=== PATIENT | female | born 1960 | race Caucasian/White ===

== ENCOUNTER → 2016-06-29 | Outpatient (CLI) | payer BC ==
--- NOTE | 2016-06-29 09:07 | MM ---
Reason for exam: history of breast cancer, mastectomy. Last mammogram was performed 1 year and 1 month ago. History: Patient is postmenopausal, has history of breast cancer at age 54, and is nulliparous. Family history of breast cancer in maternal aunt. Malignant MG stereo VAD BX LT of the left breast, June 03, 2015. Implant in the right breast, 2016. Breast lift of the right breast, 2016. Reconstruction of the left breast, 2016. Mastectomy of the left breast, 2016. Cancelled Right Mammotome of the right breast, March 09, 2007. Took estrogen for 17 years beginning at age 31. Taking antineoplastic for 1 year beginning at age 54. Physical Findings: Nurse did not find any significant physical abnormalities on exam. MG 3D Diag Mammo Imp W/Cad RT CC, MLO, and ID view(s) were taken of the right breast. Prior study comparison: May 29, 2015, left breast MG work up mamm w CAD LT. May 21, 2015, bilateral MG screening mammo w CAD. May 07, 2014, bilateral MG screening mammo w CAD. The breast tissue is heterogeneously dense. This may lower the sensitivity of mammography. There is no discrete abnormality. Intact subpectoral implant. These results were verbally communicated with the patient and result sheet given to the patient on 06/29/16. ASSESSMENT: Incomplete: need additional imaging evaluation, BI-RAD 0 RECOMMENDATION: Ultrasound of the right breast. (axilla, palpable by physician)
--- NOTE | 2016-06-29 09:12 | USB ---
Reason for exam: additional evaluation requested from abnormal screening. History: Patient is postmenopausal, has history of breast cancer at age 54, and is nulliparous. Family history of breast cancer in maternal aunt. Malignant MG stereo VAD BX LT of the left breast, June 03, 2015. Implant in the right breast, 2016. Breast lift of the right breast, 2016. Reconstruction of the left breast, 2016. Mastectomy of the left breast, 2016. Cancelled Right Mammotome of the right breast, March 09, 2007. Took estrogen for 17 years beginning at age 31. Taking antineoplastic for 1 year beginning at age 54. US Breast Limited RT Right breast ultrasound demonstrates a 4 x 4 x 3mm oval lesion too small to characterize at 9 o'clock, a 5 x 5mm oval, solid, lymph node at palpable at axilla, a 11mm and 6mm oval lymph node at axilla at area of patient's pain, benign morphology. These results were verbally communicated with the patient and result sheet given to the patient on 06/29/16. ASSESSMENT: Benign, BI-RAD 2 RECOMMENDATION: Follow-up diagnostic mammogram of the right breast in 1 year. Manage on a clinical basis with regard to right axillary palpable by physician.
== END | disposition home or self-care (01) ==
LOC: RADMAMWWP 07:35
PROVIDERS: ATTEND Surgery
DX: R92.8 Other abnormal and inconclusive findings on diagnostic imaging of breast (principal); Z85.3 Personal history of malignant neoplasm of breast; Z90.12 Acquired absence of left breast and nipple; Z98.82 Breast implant status
CPT/HCPCS: 76642; G0206; G0279

== ENCOUNTER → 2016-07-27 | Outpatient (CLI) | payer BC ==
--- NOTE | 2016-07-27 09:18 | BD ---
EXAMINATION TYPE: MG DEXA axial skeleton. DATE OF EXAM: 07/27/2016 7:44 AM CLINICAL HISTORY: Height: 65.5 Weight: 140 FRAX RISK QUESTIONS: Alcohol (3 or more units per day): no Family History (Parent hip fracture): no Glucocorticoids (More than 3mos): yes (Ex: prednisone, prednisolone, methylprednisolone, dexamethasone, and hydrocortisone). History of Fracture in Adulthood: yes Secondary Osteoporosis: 1. Type 1 Diabetes: no 2. Hyperthyroidism: no 3. Menopause before 45: yes 4. Malnutrition: no 5. Chronic liver disease: no Rheumatoid Arthritis: no Current Tobacco Use: no RISK FACTORS HISTORY OF: History of Fracture: yes, toe When: many years ago Family History of Osteoporosis: unsure Smoke tobacco: no Drink Alcohol: very very rarely Active: yes Diet low in dairy products/other sources of calcium: no Postmenopausal woman: yes, hysterectomy age 31 Take estrogen and/or progesterone medications: not now How long: age [age] Lost more than 2 inches in height since high school: no Frequent falls: no Poor Health: breast ca last year Hyperparathyroidism: no Adrenal Insufficiency: no MEDICATIONS: Prednisone or other steroids: asthma inhaler How Long: about 2-3 years Thyroid Medications: no Osteoporosis Medications: no Additional Medications: Antineoplastic (Femara since age 54), calcium & Vitamin D, cholesterol meds Additional History: Breast CA age 54, 40 pound weight loss since last year, low blood sugar EXAM MEASUREMENTS: Bone mineral densitometry was performed using the [employer] System. Bone mineral density as measured about the Lumbar spine is: ----- L1-L4(G/cm2): 1.227 T Score Values are as follows: ----- L2: 0.7 ----- L3: 0.6 ----- L4: 0.0 ----- L1-L4: 0.4 Bone mineral density has: Decreased -6.3% since study of: 08/29/2012 Bone mineral density about the R hip (g/cm2): 0.865 Bone mineral density about the L hip (g/cm2): 0.825 T Score values are as follows: -----R Neck: -1.2 -----L Neck: -1.5 -----R Total: 0.2 -----L Total: 0.1 Bone mineral density has: Decreased -4.6% since study of: 08/29/2012 IMPRESSION: Normal (Values between +1 and -1 indicate normal bone mass). Consider repeating this study in 5 year s or sooner if there is some new clinical indication. Lumbar Spine & Bilateral Totals Osteopenia (T Score between -2.5 and -1 as noted by T score values Bilateral Necks There is slightly increased risk of fracture and the patient may be considered for treatment. Re-Screen 2-5 years. NOTE: T-SCORE=SD OF THE YOUNG ADULT MEAN.
== END | disposition home or self-care (01) ==
LOC: RADBDWWP 07:14
PROVIDERS: ATTEND Internal Medicine Hematology & Oncology
DX: M85.88 Other specified disorders of bone density and structure, other site (principal); C50.512 Malignant neoplasm of lower-outer quadrant of left female breast; Z78.0 Asymptomatic menopausal state
CPT/HCPCS: 77080

== ENCOUNTER → 2016-09-10 | Outpatient (CLI) | payer BC ==
[2016-09-10 08:32] LABS: Basophils % (A) 1 %; CH 29.6; CHCM 32.8; Eosinophils # (A) 0.3 k/uL (0-0.7); Eosinophils % (A) 4 %; HCT 39.7 % (34.0-46.0); HDW 2.59; HGB 13.4 gm/dL (11.4-16.0); Luc # (Auto) 0.17; Luc % (Auto) 3; Lymphocytes # (A) 1.9 k/uL (1.0-4.8); Lymphocytes % (A) 29 %; MCH 30.6 pg (25.0-35.0); MCHC 33.8 g/dL (31.0-37.0); MCV 90.6 fL (80.0-100.0); Mean Platelet Volume 6.9; Monocytes # (A) 0.4 k/uL (0-1.0); Monocytes % (A) 7 %; Neutrophils # (A) 3.8 k/uL (1.3-7.7); Neutrophils % (A) 57 %; RBC 4.38 m/uL (3.80-5.40); RDW 13.7 % (11.5-15.5); WBC 6.7 k/uL (3.8-10.6); WBC (Perox) 7.06
[2016-09-10 08:48] LABS: ALT 30 U/L (9-52); AST 24 U/L (14-36); Alkaline Phosphatase 82 U/L (38-126); Anion Gap 9 mmol/L; Blood Urea Nitrogen 20 mg/dL (7-17); Calcium 9.3 mg/dL (8.4-10.2); Carbon Dioxide 24 mmol/L (22-30); Chloride 111 mmol/L (98-107); Cholesterol 207 mg/dL (<200); Glucose 88 mg/dL (74-99); HDL Cholesterol 86 mg/dL (40-60); Non-African American GFR(MDRD) >60 (>60 ml/min/1.73 sqM); Potassium 4.3 mmol/L (3.5-5.1); Sodium 144 mmol/L (137-145); Total Bilirubin 0.6 mg/dL (0.2-1.3); Total Protein 6.9 g/dL (6.3-8.2); Triglycerides 60 mg/dL (<150)
== END | disposition home or self-care (01) ==
LOC: LABWHC1 08:13
PROVIDERS: ATTEND Internal Medicine
DX: E78.2 Mixed hyperlipidemia (principal)
CPT/HCPCS: 36415; 80053; 80061; 85025

== ENCOUNTER 2016-10-21 14:31 | Observation (INO) | payer BC ==
[2016-10-21 15:42] LABS: Basophils # (A) 0.1 k/uL (0-0.2); Basophils % (A) 1 %; CHCM 33.7; Eosinophils # (A) 0.3 k/uL (0-0.7); Eosinophils % (A) 4 %; HCT 37.9 % (34.0-46.0); HDW 2.56; HGB 13.2 gm/dL (11.4-16.0); Luc # (Auto) 0.22; Luc % (Auto) 3; Lymphocytes # (A) 2.6 k/uL (1.0-4.8); Lymphocytes % (A) 39 %; MCHC 34.7 g/dL (31.0-37.0); MCV 89.4 fL (80.0-100.0); Mean Platelet Volume 7.1; Monocytes # (A) 0.4 k/uL (0-1.0); Monocytes % (A) 6 %; Neutrophils % (A) 46 %; RBC 4.24 m/uL (3.80-5.40); RDW 13.2 % (11.5-15.5); WBC 6.6 k/uL (3.8-10.6); WBC (Perox) 6.56
--- NOTE | 2016-10-21 15:42 | XR ---
EXAMINATION TYPE: XR chest 2V DATE OF EXAM: 10/21/2016 COMPARISON: Prior chest x-ray 11/20/2014 HISTORY: Chest pain, history of breast carcinoma TECHNIQUE: Frontal and lateral views of the chest are obtained. FINDINGS: There is no focal air space opacity, pleural effusion, or pneumothorax seen. The cardiac silhouette size is within normal limits. There is a gentle spinal curvature. Bilateral breast prosthe ses are noted. The osseous structures are intact. IMPRESSION: No acute cardiopulmonary process.
[2016-10-21 15:50] LABS: ALT 35 U/L (9-52); AST 34 U/L (14-36); Alkaline Phosphatase 66 U/L (38-126); Anion Gap 10 mmol/L; Blood Urea Nitrogen 21 mg/dL (7-17); Calcium 9.3 mg/dL (8.4-10.2); Carbon Dioxide 22 mmol/L (22-30); Chloride 109 mmol/L (98-107); Glucose 82 mg/dL (74-99); Non-African American GFR(MDRD) >60 (>60 ml/min/1.73 sqM); Sodium 141 mmol/L (137-145); Total Bilirubin 0.2 mg/dL (0.2-1.3); Total Protein 6.7 g/dL (6.3-8.2)
[2016-10-21 15:57] LABS: Partial Thromboplastin Time 23.2 sec (22.0-30.0); Prothrombin Time 10.3 sec (9.0-12.0)
[2016-10-21 16:00] LABS: Creatine Kinase 124 U/L (30-135)
[2016-10-21 16:14] LABS: Creatine Kinase MB 0.9 ng/mL (0.0-2.4); Troponin I <0.012 ng/mL (0.000-0.034)
[2016-10-21] MEDS ORDERED: RX INFO: IV CONTRAST WAS GIVEN 1 EACH MISC MISCELLANE PRN (16:26)
--- NOTE | 2016-10-21 17:13 | CT ---
EXAMINATION TYPE: CT angio chest DATE OF EXAM: 10/21/2016 5:01 PM COMPARISON: NONE HISTORY: Chest pain for [address] DLP: 194.2 mGycm Automated exposure control for dose reduction was used. CONTRAST: CTA scan of the thorax is performed with IV Contrast, patient injected with 64 mL of Omnipaque 350, p ulmonary embolism protocol. There are 3-D post processed images.. FINDINGS: The lungs are clear of infiltrate. There is no evidence of a pulmonary mass. There is minimal subsegm ental atelectasis at the lung bases. There is no pleural effusion. I see no filling defects in the pulmonary arteries. There are no hilar masses. There is no mediastina l adenopathy. Thoracic aorta appears normal. Bilateral breast implants are noted. Bony thorax appears intact. There is a 1 cm cyst on the posterior left kidney. IMPRESSION: NO EVIDENCE OF PULMONARY EMBOLISM. HIGH DENSITY 1 CM EXOPHYTIC CYST ON THE POSTERIOR LEFT KIDNEY. I H AVE NO OLD EXAM OF THIS AREA TO COMPARE. SINCE THIS IS ATYPICAL THIS WARRANTS SOME SURVEILLANCE.
[2016-10-21] MEDS ORDERED: MORPHINE SULFATE 4 MG/ML SYRINGE IV PRN (17:54)
[2016-10-21] MEDS ORDERED: ONDANSETRON 4 MG/2 ML VIAL IVP PRN (17:54)
[2016-10-21] MEDS ORDERED: NALOXONE 0.4 MG/ML 1 ML VIAL IV PRN (17:54)
[2016-10-21] MEDS ORDERED: ASPIRIN 325 MG TAB PO STA (18:00)
[2016-10-21] MEDS ORDERED: DEXTROSE 5%-0.45% NACL 1,000 ML IV SCH (18:00)
--- NOTE | 2016-10-21 18:06 | ED ---
General Adult HPI - General Chief complaint: Chest Pain Stated complaint: Chest Pain Time Seen by Provider: 10/21/16 15:07 Source: patient, RN notes reviewed, old records reviewed Mode of arrival: wheelchair Limitations: no limitations - History of Present Illness Initial comments: 56-year-old female presents with chest pain which began yesterday evening. Patient's chest pain began at rest, there was no shortness of breath. There was some lightheadedness and nausea associated with the pain. Patient denies cough or fever. No vomiting or diarrhea. Patient describes the pain as heavy dull left-sided pain is nonradiating. Pain is been waxing and waning since its onset. Patient does have history of irregular heartbeat and is currently on flecainide. She reports cardiac catheterization 1-2 years ago. She has a history of breast cancer and is currently on medication, no current chemo. - Related Data Home Medications Medication Instructions Recorded Confirmed Atorvastatin [Lipitor] 20 mg PO HS 06/21/15 10/21/16 Calcium Carbonate/Vitamin D3 1 tab PO DAILY 06/21/15 10/21/16 [Calcium 600-Vit D3 400 Tablet] Flecainide Acetate 50 mg PO BID 06/21/15 10/21/16 Mometasone/Formoterol [Dulera 100 1 puff INHALATION RT-BID 06/21/15 10/21/16 Mcg/5 Mcg Inhaler] Multivitamins, Thera [Multivitamin 1 tab PO DAILY 06/21/15 10/21/16 (formulary)] Topiramate 50 mg PO HS 06/21/15 10/21/16 Topiramate [Topamax] 25 mg PO QAM 06/21/15 10/21/16 Docusate [Colace] 100 mg PO DAILY PRN 10/21/16 10/21/16 Estradiol Cream [Estrace Cream 1 gm VAGINAL TUTH 10/21/16 10/21/16 0.01%] Letrozole [Femara] 2.5 mg PO DAILY 10/21/16 10/21/16 Magnesium Oxide [Mag-Ox] 500 mg PO BID 10/21/16 10/21/16 Ubidecarenone [Co Q-10] 100 mg PO DAILY 10/21/16 10/21/16 Allergies Allergy/AdvReac Type Severity Reaction Status Date / Time meperidine HCl [From Demerol] Allergy Nausea Verified 10/21/16 15:48 Penicillins Allergy Nausea Verified 10/21/16 15:48 propoxyphene napsylate Allergy Nausea Verified 10/21/16 15:48 [From Darvocet-N] Sulfa (Sulfonamide Allergy Nausea & Verified 10/21/16 15:48 Antibiotics) HIVES Review of Systems ROS Statement: Those systems with pertinent positive or pertinent negative responses have been documented in the HPI. ROS Other: All systems not noted in ROS Statement are negative. Past Medical History Past Medical History: Asthma, Cancer, Hyperlipidemia Additional Past Medical History / Comment(s): IRREGULAR HEART BEAT, NOT SURE TYPE (IT BEGAN AFTER SHE TOOK DIET PILLS). "COMPLICATED MIGRAINE, TIA SYMPTOMS ". NO SEIZURES. History of Any Multi-Drug Resistant Organisms: None Reported Past Surgical History: Appendectomy, Heart Catheterization, Hysterectomy Additional Past Surgical History / Comment(s): HEART CATH NEG. RIGHT ROTATOR CUFF. RIGHT KNEE ARTHRO Past Anesthesia/Blood Transfusion Reactions: Motion Sickness, Postoperative Nausea & Vomiting (PONV) Past Psychological History: No Psychological Hx Reported Smoking Status: Never smoker Past Alcohol Use History: Occasional Past Drug Use History: None Reported - Past Family History Mother Family Medical History: Cancer, Diabetes Mellitus, Myocardial Infarction ([place]) Father Family Medical History: CVA/TIA, Diabetes Mellitus General Exam Limitations: no limitations General appearance: alert, in no apparent distress Head exam: Present: atraumatic, normocephalic Eye exam: Present: normal appearance, PERRL ENT exam: Present: normal exam, mucous membranes moist Neck exam: Present: normal inspection. Absent: tenderness, meningismus Respiratory exam: Present: normal lung sounds bilaterally. Absent: respiratory distress, wheezes Cardiovascular Exam: Present: regular rate, normal rhythm, normal heart sounds GI/Abdominal exam: Present: soft. Absent: distended, tenderness, guarding Extremities exam: Present: normal inspection, normal capillary refill. Absent: pedal edema, calf tenderness Neurological exam: Present: alert, oriented X3. Absent: motor sensory deficit Psychiatric exam: Present: normal affect, normal mood Skin exam: Present: warm, dry, intact. 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 Medical Decision Making - Medical Decision Making 56-year-old female with left anterior chest pain associated with lightheadedness and nausea. Patient's pain is most resolving emergency department. EKG is nonischemic. Patient does have history of breast cancer and is currently on treatment, pain is somewhat atypical, therefore CT angiography is obtained to evaluate for pulmonary embolism. There is no evidence of PE. Chest x-ray shows no acute process. Laboratory studies including initial troponin are unremarkable. Patient is given an aspirin in the emergency department. 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 Given the myocardial bridging on cath report, patient will be placed in observation for serial cardiac enzymes and cardiology evaluation. Diagnosis: Chest pain - Lab Data Result diagrams: 10/21/16 15:15 10/21/16 15:15 Lab Results 10/21/16 10/21/16 10/21/16 Range/Units 15:15 15:15 15:15 WBC 6.6 (3.8-10.6) k/uL RBC 4.24 (3.80-5.40) m/uL Hgb 13.2 (11.4-16.0) gm/dL Hct 37.9 (34.0-46.0) % MCV 89.4 (80.0-100.0) fL MCH 31.0 (25.0-35.0) pg MCHC 34.7 (31.0-37.0) g/dL RDW 13.2 (11.5-15.5) % Plt Count 282 (150-450) k/uL Neutrophils % 46 % Lymphocytes % 39 % Monocytes % 6 % Eosinophils % 4 % Basophils % 1 % Neutrophils # 3.0 (1.3-7.7) k/uL Lymphocytes # 2.6 (1.0-4.8) k/uL Monocytes # 0.4 (0-1.0) k/uL Eosinophils # 0.3 (0-0.7) k/uL Basophils # 0.1 (0-0.2) k/uL PT (9.0-12.0) sec INR (<1.2) APTT (22.0-30.0) sec D-Dimer (<0.60) mg/L FEU Sodium 141 (137-145) mmol/L Potassium 4.0 (3.5-5.1) mmol/L Chloride 109 H (98-107) mmol/L Carbon Dioxide 22 (22-30) mmol/L Anion Gap 10 mmol/L BUN 21 H (7-17) mg/dL Creatinine 0.88 (0.52-1.04) mg/dL Est GFR (MDRD) Af Amer >60 (>60 ml/min/1.73 sqM) Est GFR (MDRD) Non-Af >60 (>60 ml/min/1.73 sqM) Glucose 82 (74-99) mg/dL Calcium 9.3 (8.4-10.2) mg/dL Magnesium 2.0 (1.6-2.3) mg/dL Total Bilirubin 0.2 (0.2-1.3) mg/dL AST 34 (14-36) U/L ALT 35 (9-52) U/L Alkaline Phosphatase 66 (38-126) U/L Total Creatine Kinase 124 (30-135) U/L CK-MB (CK-2) 0.9 (0.0-2.4) ng/mL CK-MB (CK-2) Rel Index 0.7 Troponin I <0.012 (0.000-0.034) ng/mL Total Protein 6.7 (6.3-8.2) g/dL Albumin 4.4 (3.5-5.0) g/dL Lipase 149 (23-300) U/L 10/21/16 Range/Units 15:15 WBC (3.8-10.6) k/uL RBC (3.80-5.40) m/uL Hgb (11.4-16.0) gm/dL Hct (34.0-46.0) % MCV (80.0-100.0) fL MCH (25.0-35.0) pg MCHC (31.0-37.0) g/dL RDW (11.5-15.5) % Plt Count (150-450) k/uL Neutrophils % % Lymphocytes % % Monocytes % % Eosinophils % % Basophils % % Neutrophils # (1.3-7.7) k/uL Lymphocytes # (1.0-4.8) k/uL Monocytes # (0-1.0) k/uL Eosinophils # (0-0.7) k/uL Basophils # (0-0.2) k/uL PT 10.3 (9.0-12.0) sec INR 1.0 (<1.2) APTT 23.2 (22.0-30.0) sec D-Dimer 0.24 (<0.60) mg/L FEU Sodium (137-145) mmol/L Potassium (3.5-5.1) mmol/L Chloride (98-107) mmol/L Carbon Dioxide (22-30) mmol/L Anion Gap mmol/L BUN (7-17) mg/dL Creatinine (0.52-1.04) mg/dL Est GFR (MDRD) Af Amer (>60 ml/min/1.73 sqM) Est GFR (MDRD) Non-Af (>60 ml/min/1.73 sqM) Glucose (74-99) mg/dL Calcium (8.4-10.2) mg/dL Magnesium (1.6-2.3) mg/dL Total Bilirubin (0.2-1.3) mg/dL AST (14-36) U/L ALT (9-52) U/L Alkaline Phosphatase (38-126) U/L Total Creatine Kinase (30-135) U/L CK-MB (CK-2) (0.0-2.4) ng/mL CK-MB (CK-2) Rel Index Troponin I (0.000-0.034) ng/mL Total Protein (6.3-8.2) g/dL Albumin (3.5-5.0) g/dL Lipase (23-300) U/L Disposition Clinical Impression: Chest pain Disposition: ADMITTED IP TO THIS HOSP Condition: Stable Referrals: Dariel Castro MD [Primary Care Provider] - 1-2 days Decision to Admit Reason: Admit from EC Decision Date: 10/21/16 Decision Time: 18:06
[2016-10-21] MEDS ORDERED: NITROGLYCERIN SL TABS 0.4 MG TAB SUBLINGUAL PRN (20:27)
[2016-10-21] MEDS ORDERED: ATORVASTATIN 80 MG TAB PO SCH (21:00)
[2016-10-21] MEDS: METOPROLOL TARTRATE 12.5 MG TAB PO SCH (21:13)
[2016-10-21] MEDS: LISINOPRIL 2.5 MG TAB PO SCH (21:13)
[2016-10-21] MEDS: ACETAMINOPHEN TAB 325 MG TAB PO PRN (21:23)
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
[2016-10-21 22:04] LABS: Creatine Kinase 115 U/L (30-135)
[2016-10-21 22:17] LABS: Creatine Kinase MB 0.7 ng/mL (0.0-2.4); Troponin I <0.012 ng/mL (0.000-0.034)
[2016-10-21] MEDS: FLECAINIDE 50 MG TAB PO SCH (22:20)
[2016-10-22 03:37] LABS: Creatine Kinase 101 U/L (30-135)
[2016-10-22 03:38] LABS: Cholesterol 195 mg/dL (<200); HDL Cholesterol 79 mg/dL (40-60)
[2016-10-22 03:50] LABS: Creatine Kinase MB 0.6 ng/mL (0.0-2.4); Troponin I <0.012 ng/mL (0.000-0.034)
[2016-10-22] MEDS: HEPARIN SODIUM,PORCINE 5,000 UNIT/ML 1 ML VIAL SQ SCH ×2 (05:11→10:32)
[2016-10-22] MEDS ORDERED: REGADENOSON 0.4 MG/5 ML SYRINGE IV ONE (08:00)
[2016-10-22] MEDS ORDERED: AMINOPHYLLINE 500 MG/20 ML VIAL IV PRN (08:00)
[2016-10-22 08:40] VITALS: RESP 16
[2016-10-22] MEDS ORDERED: ASPIRIN 81 MG CHEW PO SCH (09:00)
[2016-10-22] MEDS: ACETAMINOPHEN TAB 325 MG TAB PO PRN (10:31)
[2016-10-22] MEDS: METOPROLOL TARTRATE 12.5 MG TAB PO SCH (10:32)
[2016-10-22] MEDS: FLECAINIDE 50 MG TAB PO SCH (10:33)
[2016-10-22] MEDS: LISINOPRIL 2.5 MG TAB PO SCH (10:33)
--- NOTE | 2016-10-22 11:45 | NM ---
EXAMINATION TYPE: NM stress lexiscan cardiolite DATE OF EXAM: 10/22/2016 COMPARISON: Chest x-ray 10/21/2016 HISTORY: Chest pain TECHNIQUE: After the intravenous administration of 11 mCi Tc 99m Sestamibi - Cardiolite resting SPEC T images acquired 45 minutes post injection. The patient received 0.4mg Lexiscan, 28.7 mCi Tc 99m Sestamibi - Stress images obtained [address] injection FINDINGS: Review of stress and rest SPECT images demonstrates mild decreased uptake along the anterolateral lef t ventricle on stress and rest images towards the apex. No evident decreased uptake on stress as comp ared to rest images however. Chronic kidney also noted. Gated analysis shows normal wall motion with an estimated left ventricular ejection fraction of 59 %. IMPRESSION: No definite foci of pharmacologically induced left ventricular myocardial ischemia. Findings above ma y be technical rather than representing prior infarct.
--- NOTE | 2016-10-22 12:09 | EST ---
DATE OF SERVICE: 10/22/2016 TYPE OF REPORT: LEXISCAN CARDIOLITE STRESS TEST INDICATION: Chest pain. BASELINE HEART RATE: 52 BASELINE BLOOD PRESSURE: 146/70 MAXIMUM HEART RATE: 74 MAXIMUM BLOOD PRESSURE: 124/60 85% MPHR: - 100% MPHR: - METS: - MAXIMUM STAGE REACHED: - TOTAL EXERCISE TIME: - Baseline EKG revealed normal sinus rhythm with minor inferior lateral ST abnormality of a nonspecific type. With Lexiscan administration, patient did not have any significant symptoms. Heart rate changes from 52 to 74 beats per minute and blood pressure changed from 146/70 to 124/60. EKG remained inconclusive with nonspecific ST-T changes. FINAL IMPRESSION: 1. By EKG criteria, this is an inconclusive Lexiscan stress test because of resting EKG changes. 2. The nuclear scan results which are more pertinent will be reported by the radiologist. STEVEN
--- NOTE | 2016-10-22 12:22 | CONS ---
This is a 56-year old lady who carries a diagnosis of left sided breast cancer for which she had surgery that was performed about a year ago and she is now getting reconstruction surgery done. She has history of palpitations, isolated PVCs and unremarkable cardiac catheterization performed in 2014. She was seen by Dr. Castro, her primary care physician with some palpitations and chest discomfort and sent to [facility] where she had evaluation and was also seen by internal control specialist, Dr. Hart. She was started on Tambocor 50 mg q12 hours and I am not sure the type of arrhythmia she had. She also had a cardiac catheterization which did not reveal any obstructive CAD. There is question of minimal bridging noted in the mid LAD area. LV function was normal. She came into the hospital mainly with complaints of what she described as a nondescript chest tightness and pressure the occurred at rest when she was sitting down. There is some light headedness, some nausea and the pain seemed to be intense for a very short duration and then became waxing and waning. The quality of the pain is atypical. After arrival, she has three sets of troponins performed. They are all within normal limits. Her pain seems to have improved. However, she was seen by the hospitalist and advised to have a Lexiscan stress test. The patient is actually able to walk but she does not have her shoes today. She carries a diagnosis of ( ). PAST MEDICAL HISTORY: 1. Breast cancer status post mastectomy of the left breast and undergoing reconstruction surgery. 2. Bronchial asthma. 3. Hyperlipidemia. 4. Palpitations and atypical chest pain with unremarkable cardiac catheterization that was performed in November 2014. 5. She is status post appendectomy. ALLERGIES: PENICILLIN, DEMEROL, AND SULFA AND DARVOCET. HOME MEDICATIONS: At home include: 1. Atorvastatin 20 mg daily. 2. Calcium supplements. 3. Flecainide 50 mg b.i.d. 4. Dulera. 5. Multivitamins. 6. Topamax. 7. ( ) cream. 8. Magnesium oxide tablets. Review of systems unremarkable other than the above mentioned facts. On examination, blood pressure is 110/70. Pulse rate is about 68 per minute and regular. HEENT unremarkable. Fundus was not examined by me. Neck is supple. There is no JVD. I do not hear a carotid bruit. There is no thyromegaly. Heart exam reveals S1, S2 heard normally without rub, murmur or gallop. Lungs are clear. Abdomen soft, nontender. Lower extremities reveal normal pulses. No edema. Central nervous system is normal. EKG revealed normal sinus rhythm. No acute changes. LABORATORY DATA: Suggests the D. dimer is normal. Troponins are normal. IMPRESSION: 1. Atypical chest pain. 2. History of left sided breast cancer. 3. Unremarkable cardiac catheterization November 2014 at [facility]. 4. Premature ventricular contractions, on Flecainide, being seen by internal control specialist in the [place] area. RECOMMENDATIONS: 1. I am recommending that we increase activity. Perform Lexiscan stress test. If this is normal, she can be discharged. 2. I do not believe her symptoms suggest angina. 3. Advise risk factor modification. Thank you very much for the consult. STEVEN
[2016-10-22 12:31] LABS: Hemoglobin A1C 5.5 % (4.2-6.1)
[2016-10-22 12:34] VITALS: BP 102/52; TEMP 98.1
[2016-10-22 12:52] VITALS: PULSE 51
--- NOTE | 2016-10-22 13:48 | P.DS ---
Providers Date of admission: 10/21/16 18:00 Expected date of discharge: 10/22/16 Attending physician: Stef Tay MD Consults: 10/21/16 17:56 Consult Physician Urgent Consulting Provider: Ailyn Haines Consult Reason/Comments: Chest Pain Do you want consulting provider notified?: Yes, Notify in am Primary care physician: Dariel Castro - Discharge Diagnosis(es) (1) Non-cardiac chest pain Current Visit: Yes Status: Resolved (2) Dyslipidemia Current Visit: Yes Status: Chronic (3) Arrhythmia Current Visit: Yes Status: Chronic Hospital Course: Patient is a 56-year-old female history of left breast cancer, cardiac arrhythmia for which she is taking flecainide and 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 Her initial EKG was unremarkable. Her troponins were cycled and were negative. She was started on aspirin, full dose Lipitor, metoprolol, and lisinopril initially. Cardiology was consulted and she was made nothing by mouth after midnight. She underwent a Lexiscan stress test at 10/22/2016 which was negative for signs of reversible ischemia. She was seen by cardiology who felt that she was stable for discharge. Her total cholesterol level was normal at 195, her LDL is slightly elevated at 102 but HDL was impressive at 79. I have discussed with her that her cholesterol profile is within normal limits other than her LDL being slightly elevated at 102. She states that her cholesterol has been increasing and she is unsure why she has been maintaining a healthy diet. I instructed her that I would not change her Lipitor dose at this point in time but have instructed her to follow- up with her primary care provider Dr. Castro for repeat lipid profile in 3-6 months. She had initially been started on metoprolol and lisinopril here which made her blood pressure low at 102 systolic. She will obtain a blood pressure cuff and monitor her blood pressure every morning she will not be discharged home on any blood pressure medications. She will make a log and bring it to her follow-up primary care provider appointment. She was discharged home in stable condition. She will follow with her primary seam rubbing machine operator as needed. Subjective: Chest pain resolved, no shortness of breath no nausea, no vomiting, no lower extremity edema. General: non toxic, no distress, appears at stated age Derm: no rashes, no lesions Head: atraumatic, normocephalic, symmetric Eyes: EOMI, no lid lag, anicteric sclera ENT: no post nasal drip, no thrush Mouth: no lip lesion, mucus membranes moist Cardiovascular: S1S2 reg, no murmur, positive posterior tibial pulse bilateral, Lungs: CTA bilateral, no rhonchi, no rales , no accessory muscle use Abdominal: soft, nontender to palpation, no guarding, no appreciable organomegaly Ext: no gross muscle atrophy, no edema, no contractures Neuro: CN II-XI grossly intact, no focal neuro deficits Psych: Alert, oriented, appropriate affect Pertinent Studies: Yemiiscan 10/22/2016: No definitive foci of pharmacologically induced left ventricular myocardial ischemia. Procedures: None Patient Condition at Discharge: Stable Plan - Discharge Summary New Discharge Prescriptions: Continue Flecainide Acetate 50 mg PO BID Calcium Carbonate/Vitamin D3 [Calcium 600-Vit D3 400 Tablet] 1 tab PO DAILY Multivitamins, Thera [Multivitamin (formulary)] 1 tab PO DAILY Mometasone/Formoterol [Dulera 100 Mcg/5 Mcg Inhaler] 1 puff INHALATION RT-BID Topiramate 50 mg PO HS Atorvastatin [Lipitor] 20 mg PO HS Topiramate [Topamax] 25 mg PO QAM Magnesium Oxide [Mag-Ox] 500 mg PO BID Estradiol Cream [Estrace Cream 0.01%] 1 gm VAGINAL TUTH Docusate [Colace] 100 mg PO DAILY PRN PRN Reason: Constipation Ubidecarenone [Co Q-10] 100 mg PO DAILY Letrozole [Femara] 2.5 mg PO DAILY Discharge Medication List Atorvastatin [Lipitor] 20 mg PO HS 06/21/15 [History] Calcium Carbonate/Vitamin D3 [Calcium 600-Vit D3 400 Tablet] 1 tab PO DAILY [History] Flecainide Acetate 50 mg PO BID 06/21/15 [History] Mometasone/Formoterol [Dulera 100 Mcg/5 Mcg Inhaler] 1 puff INHALATION RT-BID [History] Multivitamins, Thera [Multivitamin (formulary)] 1 tab PO DAILY 06/21/15 [History ] Topiramate 50 mg PO HS 06/21/15 [History] Topiramate [Topamax] 25 mg PO QAM 06/21/15 [History] Docusate [Colace] 100 mg PO DAILY PRN 10/21/16 [History] Estradiol Cream [Estrace Cream 0.01%] 1 gm VAGINAL TUTH 10/21/16 [History] Letrozole [Femara] 2.5 mg PO DAILY 10/21/16 [History] Magnesium Oxide [Mag-Ox] 500 mg PO BID 10/21/16 [History] Ubidecarenone [Co Q-10] 100 mg PO DAILY 10/21/16 [History] Follow up Appointment(s)/Referral(s): Dariel Castro MD [Primary Care Provider] - 1-2 days Patient Instructions/Handouts: Lipid Profile (GEN), Noncardiac Chest Pain (DC) Activity/Diet/Wound Care/Special Instructions: Low fat diet, ambulate as tolerated Care Plan Goals (MU): Take blood pressure every morning and make a log to bring to your doctors appointment Discharge Disposition: HOME SELF-CARE Pending Studies Pending Results: None A total of 25 minutes of time was spent creating this complex discharge summary
== END 2016-10-22 14:21 | disposition home or self-care (01) ==
LOC: EC 14:31 → 3OBS 18:00
PROVIDERS: ADMIT Internal Medicine; ATTEND Internal Medicine
DX: R07.89 Other chest pain (principal); E78.5 Hyperlipidemia, unspecified; E78.00 Pure hypercholesterolemia, unspecified; R00.2 Palpitations; I49.9 Cardiac arrhythmia, unspecified; F32.9 Major depressive disorder, single episode, unspecified; N28.1 Cyst of kidney, acquired; Z79.899 Other long term (current) drug therapy; Z88.5 Allergy status to narcotic agent; Z88.0 Allergy status to penicillin; Z88.2 Allergy status to sulfonamides; J45.909 Unspecified asthma, uncomplicated; G43.109 Migraine with aura, not intractable, without status migrainosus; Z82.49 Family history of ischemic heart disease and other diseases of the circulatory system; Z83.3 Family history of diabetes mellitus; Z85.3 Personal history of malignant neoplasm of breast; Z79.811 Long term (current) use of aromatase inhibitors
CPT/HCPCS: 99285; 96372; 36415; 93005; 93017; 85379; 80053; 80061; 83036; 82550 ×2; 82553 ×2; 83690; 83735; 84484 ×2; 85025; 85610; 85730; 71020; 71275; 78452; G0378 ×2; A9500; J1644; Q9967; J2785

== ENCOUNTER → 2017-06-02 | Outpatient (CLI) | payer BC ==
[2017-06-02 10:37] LABS: Amorphous Sediment,Urine Rare /hpf; Appearance,Urine Cloudy (Clear); Bilirubin,Urine Negative (Negative); Blood,Urine Negative (Negative); Color,Urine Yellow; Glucose,Urine (UA) Negative (Negative); Ketones,Urine Negative (Negative); Leukocyte Esterase,Urine Negative (Negative); Nitrite,Urine Negative (Negative); Protein,Urine Negative (Negative); Squamous Epithelial Cell,Urine <1 /hpf (0-4); Urobilinogen,Urine <2.0 mg/dL (<2.0)
== END | disposition home or self-care (01) ==
LOC: LABWHC1 09:43
PROVIDERS: ATTEND Internal Medicine
DX: N39.0 Urinary tract infection, site not specified (principal)
CPT/HCPCS: 81001; 87086

== ENCOUNTER → 2017-07-01 | Outpatient (CLI) | payer BC ==
--- NOTE | 2017-07-01 10:51 | MM ---
Reason for exam: additional evaluation requested from prior study. Last mammogram was performed 1 year ago. History: Patient is postmenopausal, has history of breast cancer at age 54, and is nulliparous. Family history of breast cancer in maternal aunt. Malignant MG stereo VAD BX LT of the left breast, June 03, 2015. Implant in the right breast, 2016. Breast lift of the right breast, 2016. Reconstruction of the left breast, 2016. Mastectomy of the left breast, 2016. Cancelled Right Mammotome of the right breast, March 09, 2007. Took estrogen for 17 years beginning at age 31. Taking antineoplastic for 1 year beginning at age 54. Physical Findings: Nurse did not find any significant physical abnormalities on exam. MG 3D Diag Mammo Imp W/Cad RT CC and MLO view(s) were taken of the right breast. Prior study comparison: June 29, 2016, right breast MG 3d diag mammo imp w/cad RT. May 29, 2015, left breast MG work up mamm w CAD LT. The breast tissue is heterogeneously dense. This may lower the sensitivity of mammography. There is a stable upper inner quadrant mass of the right breast. No suspicious abnormality. No significant new findings when compared with previous films. These results were verbally communicated with the patient and result sheet given to the patient on 07/01/17. ASSESSMENT: Benign, BI-RAD 2 RECOMMENDATION: Routine screening mammogram of both breasts in 1 year.
--- NOTE | 2017-07-01 10:57 | USB ---
Reason for exam: clinical finding. History: Patient is postmenopausal, has history of breast cancer at age 54, and is nulliparous. Family history of breast cancer in maternal aunt. Malignant MG stereo VAD BX LT of the left breast, June 03, 2015. Implant in the right breast, 2016. Breast lift of the right breast, 2016. Reconstruction of the left breast, 2016. Mastectomy of the left breast, 2016. Cancelled Right Mammotome of the right breast, March 09, 2007. Took estrogen for 17 years beginning at age 31. Taking antineoplastic for 1 year beginning at age 54. US Breast RT Right breast ultrasound includes all four quadrants, the retroareolar region and axilla. Finding demonstrates a 1.1cm lymph node 3mm cortical thickness at the axilla. These results were verbally communicated with the patient and result sheet given to the patient on 07/01/17. ASSESSMENT: Benign, BI-RAD 2 RECOMMENDATION: Follow-up diagnostic mammogram of the right breast in 1 year.
== END | disposition home or self-care (01) ==
LOC: RADMAMWWP 09:27
PROVIDERS: ATTEND Surgery
DX: N64.4 Mastodynia (principal); Z85.3 Personal history of malignant neoplasm of breast
CPT/HCPCS: 77065; 76641; G0279

== ENCOUNTER → 2017-07-26 | Outpatient (CLI) | payer BC ==
--- NOTE | 2017-07-26 16:56 | BD ---
EXAMINATION TYPE: Axial Bone Density DATE OF EXAM: 07/26/2017 COMPARISON:2017 CLINICAL HISTORY: 56 year-old female history of breast cancer, post menopausal with HRT Height: 5'5 1/2 Weight: 145 FRAX RISK QUESTIONS: History of Fracture in Adulthood: y Secondary Osteoporosis: 3. Menopause before 45: y RISK FACTORS HISTORY OF: Postmenopausal woman: MEDICATIONS: Additional Medications: femera, migraines, cholesterol, irregular heartbeat , breast cancer 2015 Additional History: osteopenia EXAM MEASUREMENTS: Bone mineral densitometry was performed using the Pythian System. Bone mineral density as measured about the Lumbar spine is: ----- L1-L4(G/cm2): 1.175 T Score Values are as follows: ----- L2: 0.2 ----- L3: 0.3 ----- L4: -0.4 ----- L1-L4: 0.0 Bone mineral density has: Decreased -3.3% since study of: 07/27/2016 Bone mineral density about the R hip (g/cm2): 0.839 Bone mineral density about the L hip (g/cm2): 0.833 T Score values are as follows: -----R Neck: -1.4 -----L Neck: -1.5 -----R Total: -0.1 -----L Total: 0.0 Bone mineral density has: Decreased -2.8% since study of: 07/27/2016 IMPRESSION: Osteopenia (T Score between -2.5 and -1). There is slightly increased risk of fracture and the patient may be considered for treatment. Re-Screen 2-5 years. NOTE: T-SCORE=SD OF THE YOUNG ADULT MEAN.
== END ==
LOC: RADBDWWP 09:10
PROVIDERS: ATTEND Internal Medicine Hematology & Oncology
DX: C50.512 Malignant neoplasm of lower-outer quadrant of left female breast (principal); M85.80 Other specified disorders of bone density and structure, unspecified site; N95.1 Menopausal and female climacteric states; Z79.890 Hormone replacement therapy
CPT/HCPCS: 77080

== ENCOUNTER → 2017-08-11 | Outpatient (CLI) | payer BC ==
[2017-08-11 11:33] LABS: Magnesium 2.2 mg/dL (1.6-2.3); Potassium 4.1 mmol/L (3.5-5.1)
== END | disposition home or self-care (01) ==
LOC: LABWHC1 10:40
PROVIDERS: ATTEND Internal Medicine Cardiovascular Disease
DX: I08.1 Rheumatic disorders of both mitral and tricuspid valves (principal); R00.2 Palpitations
CPT/HCPCS: 36415; 80051; 82565; 83735; 84520

== ENCOUNTER → 2017-12-30 | Outpatient (CLI) | payer BC ==
[2017-12-30 14:32] VITALS: BP 125/84; PULSE 57; RESP 16; TEMP 98; BMI 23.1
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
== END | disposition home or self-care (01) ==
LOC: WWCWWP 13:30
PROVIDERS: ATTEND Surgery
DX: Z53.9 Procedure and treatment not carried out, unspecified reason (principal)

== ENCOUNTER 2018-01-25 10:24 | Day surgery (SDC) | payer BC ==
[2018-01-21 15:35] VITALS: BMI 22.2
[~2018-01-25 10:24] MED LIST: DEXAMETHASONE SOD PHOSPHATE 10 MG/ML 1 ML VIAL IV ONE; HEPARIN SODIUM,PORCINE 5,000 UNIT/ML 1 ML VIAL SQ ONE; HYDROmorphone 0.5 MG/0.5 ML SYRINGE IVP PRN; LIDOCAINE 1% 20 ML VIAL (10MG/ML) FOR IV START INTRADERMA PRN; ONDANSETRON 4 MG/2 ML VIAL IVP ONE; SCOPOLAMINE 1.5MG/72HR PATCH TRANSDERM ONE
[2018-01-25] MEDS: LACTATED RINGERS 1,000 ML IV SCH ×2 (11:15→15:13)
[2018-01-25 11:17] LABS: Glucose,Whole Blood 75 mg/dL (75-99)
[2018-01-25] MEDS: MIDAZOLAM 2 MG/2 ML VIAL IV PRN ×2 (11:32→13:43)
[2018-01-25] MEDS ORDERED: HEPARIN SODIUM,PORCINE 5,000 UNIT/ML 1 ML VIAL SQ ONE (14:54)
[2018-01-25] MEDS ORDERED: LIDOCAINE 1% INJ 10MG/ML (20 ML MDV) ONE (15:16)
[2018-01-25] MEDS ORDERED: MIDAZOLAM 2 MG/2 ML VIAL ONE (15:16)
[2018-01-25] MEDS ORDERED: diphenhydrAMINE 50 MG/ML 1 ML VIAL ONE (15:16)
[2018-01-25] MEDS ORDERED: KETAMINE 10 MG/ML 20 ML VIAL ONE (15:16)
[2018-01-25] MEDS ORDERED: PROPOFOL 10 MG/ML 20 ML VIAL IV ONE (15:16)
[2018-01-25] MEDS ORDERED: LIDOCAINE (PF) 10 MG/ML 2 ML VIAL SQ ONE ×2 (15:32)
--- NOTE | 2018-01-25 15:49 | P.OP ---
Date of Procedure: 01/25/18 Preoperative Diagnosis: Left breast cancer, skin thickening/rash Postoperative Diagnosis: Same Procedure(s) Performed: Skin biopsy superior medial left breast, and skin biopsy lateral left breast Anesthesia: MAC Surgeon: Dennise Moreno Estimated Blood Loss (ml): 5 IV fluids (ml): 200 Pathology: other (skin upper medial left breast, and lateral left breast) Condition: stable Disposition: PACU Indications for Procedure: The patient is a 57-year-old white female status post left breast mastectomy and reconstruction approximately 2 years ago. She has recently had some increased thickening of the skin of the left breast in the upper medial area associated with a rash as well as in the lateral area of the breast. This is of concern to the patient and of concern on examination and therefore biopsy has been recommended. Operative Findings: Rash and thickened skin right breast upper medial aspect, thickening of the skin over the lateral breast in association with prior reconstruction. Description of Procedure: The patient was taken to the operating room and the left reconstructed breast area was prepped and draped with this in a sterile fashion. The patient had undergone a skin sparing mastectomy with reconstruction of the left side. One percent lidocaine was used to anesthetize the area of concern in the upper medial breast as well as in the lateral breast. Approximately 8 mm skin incision was performed in the left breast in the upper inner aspect. This was over an area of rash. Full-thickness of the skin was performed. The specimen was removed and sent to pathology. The skin was closed using 4-0 Monocryl. Following this instruments were changed appropriately in the lateral aspect of the breast which had thickened vein was identified. A approximately 8 mm incision was area as well and full-thickness biopsy was obtained. The skin was closed using a 4-0 Monocryl deep as well as a nylon suture on the skin. The patient tolerated procedure in stable condition specimens were sent for pathology. The patient will follow with Dr. Gomez in 1 week.
--- NOTE | 2018-01-25 15:51 | P.DS ---
Providers Attending physician: Dennise Moreno Primary care physician: Dariel Castro Plan - Discharge Summary New Discharge Prescriptions: No Action Flecainide Acetate 50 mg PO BID Calcium Carbonate/Vitamin D3 [Calcium 600-Vit D3 400 Tablet] 2 tab PO DAILY Multivitamins, Thera [Multivitamin (formulary)] 1 tab PO DAILY Mometasone/Formoterol [Dulera 100 Mcg/5 Mcg Inhaler] 1 puff INHALATION RT-BID Topiramate 50 mg PO HS Atorvastatin [Lipitor] 20 mg PO HS Topiramate [Topamax] 25 mg PO QAM Magnesium Oxide [Mag-Ox] 500 mg PO BID Estradiol Cream [Estrace Cream 0.01%] 1 gm VAGINAL TUTH Docusate [Colace] 100 mg PO DAILY PRN PRN Reason: Constipation Letrozole [Femara] 2.5 mg PO DAILY Pregabalin [Lyrica] 100 mg PO HS Discharge Medication List Atorvastatin [Lipitor] 20 mg PO HS 06/21/15 [History] Calcium Carbonate/Vitamin D3 [Calcium 600-Vit D3 400 Tablet] 2 tab PO DAILY [History] Flecainide Acetate 50 mg PO BID 06/21/15 [History] Mometasone/Formoterol [Dulera 100 Mcg/5 Mcg Inhaler] 1 puff INHALATION RT-BID [History] Multivitamins, Thera [Multivitamin (formulary)] 1 tab PO DAILY 06/21/15 [History ] Topiramate 50 mg PO HS 06/21/15 [History] Topiramate [Topamax] 25 mg PO QAM 06/21/15 [History] Docusate [Colace] 100 mg PO DAILY PRN 10/21/16 [History] Estradiol Cream [Estrace Cream 0.01%] 1 gm VAGINAL TUTH 10/21/16 [History] Letrozole [Femara] 2.5 mg PO DAILY 10/21/16 [History] Magnesium Oxide [Mag-Ox] 500 mg PO BID 10/21/16 [History] Pregabalin [Lyrica] 100 mg PO HS 12/30/17 [History] Follow up Appointment(s)/Referral(s): Dennise Moreno MD [STAFF PHYSICIAN] - 1 Week Activity/Diet/Wound Care/Special Instructions: do not drive today patient may shower in 48 hours Discharge Disposition: HOME SELF-CARE
[2018-01-25 15:58] VITALS: TEMP 96.8
[2018-01-25 16:57] VITALS: RESP 18
[2018-01-25 17:15] VITALS: PULSE 60
[2018-01-25 17:44] VITALS: BP 104/53
== END 2018-01-25 17:47 | disposition home or self-care (01) ==
LOC: OR 10:24
PROVIDERS: ATTEND Surgery
DX: D18.01 Hemangioma of skin and subcutaneous tissue (principal); L57.8 Other skin changes due to chronic exposure to nonionizing radiation; L90.5 Scar conditions and fibrosis of skin; C50.912 Malignant neoplasm of unspecified site of left female breast; E78.5 Hyperlipidemia, unspecified; M79.7 Fibromyalgia; M19.90 Unspecified osteoarthritis, unspecified site; G43.909 Migraine, unspecified, not intractable, without status migrainosus; J45.909 Unspecified asthma, uncomplicated; I10 Essential (primary) hypertension; Z88.5 Allergy status to narcotic agent; Z88.0 Allergy status to penicillin; Z88.2 Allergy status to sulfonamides; Z79.899 Other long term (current) drug therapy; Z90.12 Acquired absence of left breast and nipple; Z79.1 Long term (current) use of non-steroidal anti-inflammatories (NSAID); Z82.49 Family history of ischemic heart disease and other diseases of the circulatory system; Z90.710 Acquired absence of both cervix and uterus
CPT/HCPCS: 19101 ×2; 88305; J2250; J1200; J2001 ×2; J1644; J1100; J2405; J2704

== ENCOUNTER → 2018-02-03 | Outpatient (CLI) | payer BC ==
[2018-02-03 08:47] VITALS: PULSE 55; RESP 18; TEMP 96.6; BMI 22.2
--- NOTE | 2018-02-03 09:14 | P.PN ---
Subjective Progress Note Date: 02/03/18 Principal diagnosis: post-op and pain in the lateral left breast The patient is status post left breast mastectomy and reconstruction June 2015. Since that time she did well until approximately 3 months ago when she complains of some pain in the lateral aspect of the left chest wall radiating into the region of the breast. The patient states that the pain occurs with activity. She states that it occurs on a daily basis. She does take Motrin and Tylenol but with minimal help. She describes the pain as a 4-5. It does not radiate anyplace. He does not hurt if she is not doing activity. She did just undergo a skin biopsy of an area of rash in the left chest wall which was negative. This revealed skin with dermal scar/fibrosis and a second area in the lateral breast revealed dermal scar fibrosis and a small hemangioma both were negative for malignancy. She is presently being treated for fibromyalgia. Objective - Vital Signs Vital signs: Vital Signs Temp 96.6 F L 02/03/18 08:42 Pulse 55 L 02/03/18 08:42 Resp 18 02/03/18 08:42 BP Pulse Ox 100 02/03/18 08:42 Intake & Output 02/02/18 02/03/18 02/03/18 18:59 06:59 18:59 Weight 64.41 kg - Constitutional General appearance: Present: average body habitus - EENT Eyes: Present: EOMI ENT: Present: hearing grossly normal - Neck Neck: Present: normal ROM - Respiratory Respiratory: bilateral: CTA - Cardiovascular Rhythm: regular Heart sounds: normal: S1, S2 - Gastrointestinal General gastrointestinal: Present: soft - Integumentary Integumentary Comment(s): incisions left breast: clean and dry - Musculoskeletal Musculoskeletal: Present: gait normal - Psychiatric Psychiatric: Present: A&O x's 3, appropriate affect, intact judgment & insight Assessment and Plan Assessment: impression: 1. No evidence of recurrent cancer 2. Fibromyalgia 3. Left chest wall discomfort 4. Patient follows with Dr. Mai is presently taking Femera Plan: 1. Continue present therapy 2. Repeat physical examination here in 6 months time 3. Consider ultrasound left chest wall and area of discomfort to rule out any mass or nodularity 4. If ultrasound is done we'll see patient back next week 5. Suspect that the pain is related to some scarring related to the breast implant as well as the fibromyalgia CC: Dr. Castro
== END ==
LOC: WWCWWP 08:35
PROVIDERS: ATTEND Surgery
DX: Z53.9 Procedure and treatment not carried out, unspecified reason (principal)

== ENCOUNTER → 2018-02-11 | Outpatient (CLI) | payer BC ==
--- NOTE | 2018-02-11 09:22 | USB ---
Reason for exam: clinical finding. History: Patient is postmenopausal, has history of breast cancer at age 54, and is nulliparous. Family history of breast cancer in maternal aunt. Malignant MG stereo VAD BX LT of the left breast, June 03, 2015. Implant in the right breast, 2016. Breast lift of the right breast, 2016. Reconstruction of the left breast, 2016. Mastectomy of the left breast, 2016. Cancelled Right Mammotome of the right breast, March 09, 2007. Took estrogen for 17 years beginning at age 31. Taking antineoplastic for 1 year beginning at age 54. Indicated problem(s): pain in the left breast. Physical Findings: Nurse Summary: left breast mastectomy with implant, 0.5 x 0.5cm probable hematoma upper inner quadrant with bruising secondary to biops in office per Dr. Moreno (nurse ts). US Breast LT Left complete breast ultrasound includes all four quadrants, the retroareolar region and axilla. Finding demonstrates no cystic or solid lesion seen. No sonographic evidence of malignancy. These results were verbally communicated with the patient and result sheet given to the patient on 02/11/18. ASSESSMENT: Negative, BI-RAD 1 RECOMMENDATION: Follow-up diagnostic mammogram. Right breast due in June 2018.
== END | disposition home or self-care (01) ==
LOC: RADUSWWP 08:03
PROVIDERS: ATTEND Surgery
DX: N64.4 Mastodynia (principal)

== ENCOUNTER → 2018-02-17 | Outpatient (CLI) | payer BC ==
[2018-02-17 15:51] VITALS: BP 106/71; PULSE 67; RESP 18; TEMP 97.9; BMI 22.1
--- NOTE | 2018-02-17 16:02 | P.PN ---
Progress Note - Text Maria R is a 57-year-old white female who is status post left breast mastectomy and reconstruction in June 2015. She was recently seen with a complaint of some pain in the lateral aspect of the left chest wall radiating into the region of the breast reconstruction. The pain occurs with activity. She is treated for fibromyalgia. Today she comes in after an ultrasound of the area done to evaluate the superficial tissues. The ultrasound was negative for any lesions of concern. She did have a skin biopsy of an area of rash in the left chest wall which was negative for any malignancy. She also had a biopsy in the lateral aspect of the breast which revealed dermal scar, fibrosis, and a small hemangioma negative for malignancy. On breast examination she has not had anything which was suspicious for recurrent malignancy. I have reassured her regarding the results of the ultrasound. She seems to be feeling better at this time. She is going to follow up in 6 months or sooner if she has any questions or areas of concern. cc: Dr. Castro
== END | disposition home or self-care (01) ==
LOC: WWCWWP 15:33
PROVIDERS: ATTEND Surgery
DX: Z53.9 Procedure and treatment not carried out, unspecified reason (principal)

== ENCOUNTER → 2018-07-11 | Outpatient (CLI) | payer BC ==
--- NOTE | 2018-07-12 07:52 | MM ---
Reason for exam: additional evaluation requested from prior study. Last mammogram was performed 1 year ago. History: Patient is postmenopausal, has history of breast cancer at age 54, and is nulliparous. Family history of breast cancer in maternal aunt. Malignant MG stereo VAD BX LT of the left breast, June 03, 2015. Implant in the right breast, 2015. Breast lift of the right breast, 2016. Reconstruction of the left breast, 2016. Mastectomy of the left breast, 2016. Cancelled Right Mammotome of the right breast, March 09, 2007. Took estrogen for 17 years beginning at age 31. Taking antineoplastic for 1 year beginning at age 54. Physical Findings: Nurse did not find any significant physical abnormalities on exam. MG 3D Diag Mammo Imp W/Cad RT CC, MLO, and ID view(s) were taken of the right breast. Prior study comparison: July 01, 2017, right breast MG 3d diag mammo imp w/cad RT. June 29, 2016, right breast MG 3d diag mammo imp w/cad RT. The breast tissue is heterogeneously dense. This may lower the sensitivity of mammography. There is no discrete abnormality. Right subpectoral implant noted. These results were verbally communicated with the patient and result sheet given to the patient on 07/11/18. ASSESSMENT: Benign, BI-RAD 2 RECOMMENDATION: Follow-up diagnostic mammogram of the right breast in 1 year.
== END | disposition home or self-care (01) ==
LOC: RADMAMWWP 15:36
PROVIDERS: ATTEND Surgery
DX: R92.8 Other abnormal and inconclusive findings on diagnostic imaging of breast (principal)
CPT/HCPCS: 77061; 77065

== ENCOUNTER → 2018-07-25 | Outpatient (CLI) | payer BC ==
--- NOTE | 2018-07-25 12:05 | XR ---
Left foot HISTORY: Left foot pain 3 views of the left leg No comparisons Soft tissue swelling noted lateral to the metatarsal distally. Bone mineralization remarkable for cys tic focus at the distal fifth metatarsal with sclerotic rim measuring only approximately 4 mm, nonagg ressive appearance, without cortical destruction, joint spaces and alignment are maintained. No fract ure or dislocation. There is a small plantar calcaneal spur. IMPRESSION: Soft tissue swelling. Additional nonspecific findings described above.
--- NOTE | 2018-07-25 12:38 | XR ---
Left shoulder HISTORY: Left shoulder pain Reviews of the left shoulder Correlation to prior exam 11/21/2009 Arthropathy present at the acromioclavicular joint. Bone mineralization, joint spaces and alignment a re maintained. Left lung apex as visualized is normal. IMPRESSION: Acromioclavicular joint arthropathy.
== END | disposition home or self-care (01) ==
LOC: RADXRMAIN 11:21
PROVIDERS: ATTEND Internal Medicine
DX: M19.012 Primary osteoarthritis, left shoulder (principal); M79.89 Other specified soft tissue disorders; M77.32 Calcaneal spur, left foot

== ENCOUNTER → 2018-08-06 | Outpatient (CLI) | payer BC ==
--- NOTE | 2018-08-06 13:29 | MR ---
EXAMINATION TYPE: MR shoulder LT wo con DATE OF EXAM: 08/06/2018 COMPARISON: Left shoulder x-ray July 25, 2018 HISTORY: Lt shoulder pain/stiffness x 2 mos, hx surgery 8 yrs ago TECHNIQUE: Multiplanar, multisequence imaging of the left shoulder is performed without contrast. FINDINGS: Rotator Cuff: Supraspinatus and infraspinatus tendons are intact. No tendon retraction is identified to suggest full-thickness tear. Subscapularis tendon is intact. Acromioclavicular Joint: There is moderate to severe narrowing and capsular hypertrophy with mild spu rring, underlying fat plane is effaced. Glenohumeral Joint: Mild to moderate narrowing with small to moderate glenohumeral joint effusion. No significant spurring. Labrum: The superior labrum shows blunting and increased signal suggestive of degenerative tear with undercutting coronal image 20. Biceps Tendon: The long head of biceps is in normal location within bicipital groove. Some fluid from fusion extends towards the extracapsular portion. Bone marrow signal: No focal abnormal marrow signal is appreciated. Other: Increased fluid subdeltoid/subacromial bursa. IMPRESSION: 1. No rotator cuff tear is evident. 2. Moderate to severe AC joint arthropathy with suggestion of underlying impingement, correlate clini lenora. 3. Moderate subdeltoid/subacromial bursitis.
== END ==
LOC: RADMRIMAIN 11:30
PROVIDERS: ATTEND Internal Medicine
DX: M75.52 Bursitis of left shoulder (principal); M19.012 Primary osteoarthritis, left shoulder; G89.4 Chronic pain syndrome

== ENCOUNTER → 2018-08-19 | Outpatient (CLI) | payer BC ==
[2018-08-19 09:54] VITALS: BP 132/78; PULSE 66; RESP 16; TEMP 97.9; BMI 23.0
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
== END | disposition home or self-care (01) ==
LOC: WWCWWP 09:33
PROVIDERS: ATTEND Surgery
DX: Z53.9 Procedure and treatment not carried out, unspecified reason (principal)

== ENCOUNTER → 2018-08-23 | Outpatient (CLI) | payer BC ==
[~2018-08-23] MED LIST changes: -DEXAMETHASONE SOD PHOSPHATE 10 MG/ML 1 ML VIAL IV ONE; -HEPARIN SODIUM,PORCINE 5,000 UNIT/ML 1 ML VIAL SQ ONE; -HYDROmorphone 0.5 MG/0.5 ML SYRINGE IVP PRN; -LIDOCAINE 1% 20 ML VIAL (10MG/ML) FOR IV START INTRADERMA PRN; -ONDANSETRON 4 MG/2 ML VIAL IVP ONE; +REGADENOSON 0.4 MG/5 ML SYRINGE IV ONE; -SCOPOLAMINE 1.5MG/72HR PATCH TRANSDERM ONE
--- NOTE | 2018-08-23 11:38 | NM ---
EXAMINATION TYPE: NM stress lexiscan cardiolite DATE OF EXAM: 08/23/2018 COMPARISON: 10/22/2016 HISTORY: Chest pain TECHNIQUE: After the intravenous administration of 10.17 mCi Tc 99m Sestamibi - Cardiolite resting S PECT images acquired 45 minutes post injection. The patient received 0.4mg Lexiscan, 25.9 mCi Tc 99m Sestamibi - Stress images obtained [address] injection FINDINGS: Review of stress and rest SPECT images demonstrates no distinct perfusion abnormality. Gated analysi s shows normal wall motion with an estimated left ventricular ejection fraction of 58 %. IMPRESSION: No scintigraphic evidence for reversible ischemia.
--- NOTE | 2018-08-23 13:28 | EST ---
EXERCISE STRESS DATE OF SERVICE: 08/23/2018 AGE: 57 SEX: Female HT: 5'7" WT: 147 pounds PROTOCOL: Lexiscan Cardiolite STAGE: DURATION OF EXERCISE: HEART RATE REST: 59 BLOOD PRESSURE REST: 115/63 MAXIMUM HEART RATE ACHIEVED: 81 MAXIMUM BLOOD PRESSURE: 143/58 85% MPHR: 100% MPHR: METS: INDICATIONS: Chest pain. CLINICAL INFORMATION: Baseline rhythm is sinus mechanism, rate of 59, normal axis, intervals, minor nonspecific ST-T wave changes. Baseline blood pressure 115/58 mmHg. Patient received injection of Lexiscan. Electrocardiograph monitoring revealed no evidence of diagnostic ischemic ST deviation. Cardiolite was injected per protocol. CONCLUSION: 1. Nondiagnostic electrocardiograph stress testing. 2. Nuclear images will be reported separately. MMODL / IJN: [id number] /
== END | disposition home or self-care (01) ==
LOC: RADNMMAIN 08:18
PROVIDERS: ATTEND Internal Medicine Cardiovascular Disease
DX: R07.89 Other chest pain (principal)
CPT/HCPCS: 93017; 78452; A9500; J2785

== ENCOUNTER → 2018-12-22 | Outpatient (CLI) | payer BC ==
--- NOTE | 2018-12-22 18:11 | ECHOF ---
Referral Reason:R06.09 exertional dyspnea MEASUREMENTS -------- HEIGHT: 167.6 cm WEIGHT: 72.6 kg BP: RVIDd: 2.6 cm (< 3.3) IVSd: 0.9 cm (0.6 - 1.1) LVIDd: 4.4 cm (3.9 - 5.3) LVPWd: 0.9 cm (0.6 - 1.1) IVSs: 1.5 cm LVIDs: 3.1 cm LVPWs: 1.5 cm LA Diam: 3.2 cm (2.7 - 3.8) LAESV Index (A-L): 24.74 ml/m Ao Diam: 2.9 cm (2.0 - 3.7) AV Cusp: 1.9 cm (1.5 - 2.6) MV EXCURSION: 14.664 mm (> 18.000) MV EF SLOPE: 74 mm/s (70 - 150) EPSS: 0.5 cm MV E Fernando: 0.86 m/s MV DecT: 207 ms MV A Fernando: 0.96 m/s MV E/A Ratio: 0.89 RAP: 5.00 mmHg RVSP: 19.52 mmHg TAPSE: 26.18 mm FINDINGS -------- Sinus rhythm. This was a technically good study. The left ventricular size is normal. Left ventricular wall thickness is normal. Overall left vent ricular systolic function is normal with, an EF between 60 - 65 %. The diastolic filling pattern is normal for the age of the patient 10.04. The right ventricle is normal in size. Normal LA size by volume 22+/-6 ml/m2. The right atrium is normal in size. Interatrial and interventricular septum intact. The aortic valve is trileaflet and appears structurally normal. Mild mitral regurgitation is present. Mild tricuspid regurgitation present. Right ventricular systolic pressure is normal at < 35 mmHg. The aortic root size is normal. Normal inferior vena cava with normal inspiratory collapse consistent with estimated right atrial pre ssure of 5 mmHg. There is no pericardial effusion. CONCLUSIONS -------- 1. Sinus rhythm. 2. This was a technically good study. 3. The left ventricular size is normal. 4. Left ventricular wall thickness is normal. 5. Overall left ventricular systolic function is normal with, an EF between 60 - 65 %. 6. The diastolic filling pattern is normal for the age of the patient 10.04 7. The right ventricle is normal in size. 8. Normal LA size by volume 22+/-6 ml/m2. 9. The right atrium is normal in size. 10. Interatrial and interventricular septum intact. 11. The aortic valve is trileaflet and appears structurally normal. 12. Mild mitral regurgitation is present. 13. Mild tricuspid regurgitation present. 14. Right ventricular systolic pressure is normal at < 35 mmHg. 15. The aortic root size is normal. 16. Normal inferior vena cava with normal inspiratory collapse consistent with estimated right atrial pressure of 5 mmHg. 17. There is no pericardial effusion. MACHINE DYER: Siena Batista RDCS
--- NOTE | 2018-12-22 18:48 | P.STRESS ---
- Stress Test Note Stress Test Results/Findings: Exam Performed: stress test Exam Date: 12/22/18 Reason for Exam: DYSPNEA Height: 5 ft 7 in Weight: 72.575 kg Protocol: SOHAM Stage: 1 Duration of Exercise: 2:15 Resting Heart Rate: 73 Resting Blood Pressure: 152/80 Maximum Achieved Heart Rate: 110 Maximum Achieved Blood Pressure: 166/42 85% PMHR: 137 100% PMHR: 161 METS: 3.6 Technologist Comment: Stress Test Results/Findings: This is a 58-year-old female with history of chest pain, shortness of breath and family history of ischemic heart disease and COPD being evaluated of cardiac status. Stress data : Baseline EKG showed sinus rhythm with normal MS interval and QRS duration mild nonspecific ST-T changes. Blood pressure at rest is 152/80 with pulse rate of 73. Patient awoke on the Soham protocol for 2 minutes and 15 seconds achieving a maximal heart rate of 110 with a blood pressure 166/42. The test was terminated because of extreme shortness of breath and patient's inability to continue. EKG taken during exercise continued to some nonspecific ST-T changes without any significant deviation from the baseline. Final impression: #1. Inconclusive stress test as patient could not achieve 85% predicted heart rate. Patient also has diffuse nonspecific ST-T changes at baseline #2. Limited excess capacity
--- NOTE | 2018-12-23 12:52 | EST ---
Stress Test Results/Findings: Exam Performed: stress test Exam Date: 12/22/18 Reason for Exam: DYSPNEA Height: 5 ft 7 in Weight: 72.575 kg Protocol: SOHAM Stage: 1 Duration of Exercise: 2:15 Resting Heart Rate: 73 Resting Blood Pressure: 152/80 Maximum Achieved Heart Rate: 110 Maximum Achieved Blood Pressure: 166/42 85% PMHR: 137 100% PMHR: 161 METS: 3.6 Technologist Comment: Stress Test Results/Findings: This is a 58-year-old female with history of chest pain, shortness of breath and family history of ischemic heart disease and COPD being evaluated of cardiac status. Stress data : Baseline EKG showed sinus rhythm with normal UT interval and QRS duration mild nonspecific ST-T changes. Blood pressure at rest is 152/80 with pulse rate of 73. Patient awoke on the Soham protocol for 2 minutes and 15 seconds achieving a maximal heart rate of 110 with a blood pressure 166/42. The test was terminated because of extreme shortness of breath and patient's inability to continue. EKG taken during exercise continued to some nonspecific ST-T changes without any significant deviation from the baseline. Final impression: #1. Inconclusive stress test as patient could not achieve 85% predicted heart rate. Patient also has diffuse nonspecific ST-T changes at baseline #2. Limited excess capacity MTDD
== END | disposition home or self-care (01) ==
LOC: RADNMMAIN 08:29
PROVIDERS: ATTEND Internal Medicine
DX: R94.39 Abnormal result of other cardiovascular function study (principal); R06.09 Other forms of dyspnea; R07.9 Chest pain, unspecified
CPT/HCPCS: 93017; 93306

== ENCOUNTER → 2019-01-03 | Outpatient (CLI) | payer BC ==
--- NOTE | 2019-01-07 13:05 | HM ---
HOLTER MONITOR REPORT The patient in her diary indicated episodes of pain in the chest, some shortness of breath, but no palpitations or syncope. Predominant rhythm appears to be sinus with a heart rate ranging from 43 to 84 beats per minute with average heart rate of 54 beats per minute. There was no evidence of any ventricular or supraventricular ectopic beats. When patient complained of some shortness of breath, she was in a sinus rhythm. Sinus rhythm and sinus bradycardia was noted. There were no pauses of more than 2.5 seconds noted. There was no correlation of any significant arrhythmia when patient complained of either chest pain or shortness of breath. FINAL IMPRESSION: Predominant rhythm is sinus with sinus bradycardia, average heart rate of about 54 beats per minute. No significant pauses of more than 2 seconds. There were no significant supraventricular or ventricular ectopic beats. When patient complained of chest pain and shortness of breath, there was no significant arrhythmia. MMODL / IJN: [id number] /
== END | disposition home or self-care (01) ==
LOC: RADECHMAIN 11:38
PROVIDERS: ATTEND Internal Medicine
DX: R00.1 Bradycardia, unspecified (principal)
CPT/HCPCS: 93225; 93226

== ENCOUNTER → 2019-01-27 | Outpatient (CLI) | payer BC ==
--- NOTE | 2019-01-27 11:58 | US ---
EXAMINATION TYPE: US gallbladder DATE OF EXAM: 01/27/2019 COMPARISON: CT CLINICAL HISTORY: R11.2 Nausea and vomiting. Pt states ABD pain, bloating, vomiting EXAM MEASUREMENTS: Liver Length: 14.0 cm Gallbladder Wall: 0.3 cm CBD: 0.3 cm Right Kidney: 10.2 x 4.4 x 4.6 cm Pancreas: wnl Liver: Heterogeneous, unable to visualize possible cysts as seen on prior CT Gallbladder: wall thickness upper limits of normal, otherwise appeared wnl Evidence for sonographic Terry's sign: No CBD: wnl Right Kidney: wnl IMPRESSION: 1. Hepatic heterogeneity which may reflect fatty liver versus diffuse hepatocellular disease.
== END | disposition home or self-care (01) ==
LOC: RADUSWWP 10:41
PROVIDERS: ATTEND Internal Medicine
DX: R11.2 Nausea with vomiting, unspecified (principal)
CPT/HCPCS: 76705

== ENCOUNTER → 2019-02-06 | Outpatient (CLI) | payer BC ==
--- NOTE | 2019-02-06 13:25 | NM ---
Nuclear medicine hepatobiliary scan. HISTORY: Pain. DOSAGE: The patient received 8 ounces of ensure plus and 5.0 mCi of Technetium 99m Choletec. FINDINGS: There is normal hepatic extraction. The gallbladder is seen by 20 minutes. There is bilia ry to bowel clearance by 40 minutes. Ejection fraction is 63%. IMPRESSION: 1. Normal hepatobiliary exam
== END | disposition home or self-care (01) ==
LOC: RADNMMAIN 10:51
PROVIDERS: ATTEND Internal Medicine
DX: R11.0 Nausea (principal); Z88.0 Allergy status to penicillin; Z88.2 Allergy status to sulfonamides; Z88.1 Allergy status to other antibiotic agents; Z88.5 Allergy status to narcotic agent
CPT/HCPCS: 78226; A9537

== ENCOUNTER → 2019-03-24 | Outpatient (CLI) | payer BC ==
[2019-03-24 12:02] VITALS: BP 154/83; PULSE 90; RESP 18; TEMP 98.1
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
== END ==
LOC: WWCWWP 11:24
PROVIDERS: ATTEND Surgery
DX: Z53.9 Procedure and treatment not carried out, unspecified reason (principal)

== ENCOUNTER → 2019-03-28 | Outpatient (CLI) | payer BC ==
[2019-03-28 09:46] LABS: Basophils # (A) 0.1 k/uL (0-0.2); Basophils % (A) 1 %; Eosinophils # (A) 0.3 k/uL (0-0.7); Eosinophils % (A) 5 %; HCT 41.1 % (34.0-46.0); HGB 13.1 gm/dL (11.4-16.0); Lymphocytes # (A) 2.1 k/uL (1.0-4.8); Lymphocytes % (A) 32 %; MCH 29.3 pg (25.0-35.0); MCHC 31.8 g/dL (31.0-37.0); MCV 92.3 fL (80.0-100.0); Mean Platelet Volume 7.6; Monocytes # (A) 0.4 k/uL (0-1.0); Monocytes % (A) 6 %; Neutrophils # (A) 3.5 k/uL (1.3-7.7); Neutrophils % (A) 53 %; Platelet Count 285 k/uL (150-450); RBC 4.46 m/uL (3.80-5.40); RDW 13.7 % (11.5-15.5); WBC 6.7 k/uL (3.8-10.6)
[2019-03-28 17:06] LABS: African American GFR (CKD) 71.4 (60.0-200.0); Albumin 4.6 g/dL (3.80-4.90); Albumin/Globulin Ratio 2.88 (1.60-3.17); Anion Gap 7.9 mmol/L (4.00-12.00); Calcium 9.6 mg/dL (8.7-10.3); Carbon Dioxide 27.1 mmol/L (21.6-31.8); Chol/HDL Ratio 2.49; Globulin 1.6 g/dL (1.6-3.3); LDL Cholesterol,Calculated 91.4 mg/dL (0.0-131.0); Non-African American GFR(CKD) 61.6 (60.0-200.0); Potassium 4.5 mmol/L (3.5-5.5); Total Bilirubin 0.5 mg/dL (0.2-1.2); Total Protein 6.2 g/dL (6.2-8.2); VLDL Calculation 12.6 mg/dL (5.00-40.00)
== END | disposition home or self-care (01) ==
LOC: LABWHC1 09:20
PROVIDERS: ATTEND Internal Medicine
DX: Z00.00 Encounter for general adult medical examination without abnormal findings (principal); I10 Essential (primary) hypertension; E78.2 Mixed hyperlipidemia; E55.9 Vitamin D deficiency, unspecified
CPT/HCPCS: 36415; 80053; 80061; 82306; 85025

== ENCOUNTER → 2019-07-26 | Outpatient (CLI) | payer BC ==
--- NOTE | 2019-07-27 07:36 | MM ---
Reason for exam: additional evaluation requested from prior study. Last mammogram was performed 1 year ago. History: Patient is postmenopausal, has history of breast cancer at age 54, and is nulliparous. Family history of breast cancer in maternal aunt. Malignant MG stereo VAD BX LT of the left breast, June 03, 2015. Implant in the right breast, 2015. Breast lift of the right breast, 2016. Reconstruction of the left breast, 2016. Mastectomy of the left breast, 2015. Cancelled Right Mammotome of the right breast, March 09, 2007. Took estrogen for 17 years beginning at age 31. Taking antineoplastic for 1 year beginning at age 54. Physical Findings: Nurse did not find any significant physical abnormalities on exam. MG 3D Diag Mammo Imp W/Cad RT CC, MLO, and ID view(s) were taken of the right breast. Prior study comparison: July 11, 2018, right breast MG 3d diag mammo imp w/cad RT. July 01, 2017, right breast MG 3d diag mammo imp w/cad RT. There are scattered fibroglandular densities. No suspicious abnormality on the right breast. No significant new findings when compared with previous films. These results were verbally communicated with the patient and result sheet given to the patient on 07/26/19. ASSESSMENT: Negative, BI-RAD 1 RECOMMENDATION: Routine screening mammogram of the right breast in 1 year.
== END | disposition home or self-care (01) ==
LOC: RADMAMWWP 07:37
PROVIDERS: ATTEND Surgery
DX: R92.8 Other abnormal and inconclusive findings on diagnostic imaging of breast (principal); Z98.82 Breast implant status; Z90.12 Acquired absence of left breast and nipple
CPT/HCPCS: 77061; 77065

== ENCOUNTER → 2019-08-04 | Outpatient (CLI) | payer BC ==
[2019-08-04 13:04] VITALS: BP 138/66; PULSE 65; RESP 18; TEMP 98.5
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
== END | disposition home or self-care (01) ==
LOC: WWCWWP 12:39
PROVIDERS: ATTEND Surgery
DX: Z53.9 Procedure and treatment not carried out, unspecified reason (principal)

== ENCOUNTER → 2019-10-11 | Outpatient (CLI) | payer BC ==
--- NOTE | 2019-10-11 16:36 | BD ---
EXAMINATION TYPE: Axial Bone Density DATE OF EXAM: 10/11/2019 COMPARISON: 07.26.2017 CLINICAL HISTORY: 59 YR OLD FEMALE....ICD-10 CODE: M89.9 OSTEOPENIA, N95.1 POST ZAKI, Z79.890 Height: 64.4 Weight: 162 FRAX RISK QUESTIONS: Glucocorticoids (More than 3mos): YES (Ex: prednisone, prednisolone, methylprednisolone, dexamethasone, and hydrocortisone). History of Fracture in Adulthood: YES Secondary Osteoporosis: YES 3. Menopause before 45: YES AT 34 RISK FACTORS HISTORY OF: HX OF FOOT FXS AN ADULT History of Wrist Fracture: LT WRIST, AN ADULT Family History of Osteoporosis: NONE KNOWN Active: YES Postmenopausal woman: YES, AT ABOUT AGE 34 Take estrogen and/or progesterone medications: YES, FOR ABOUT 15+ YRS, NONE NOW Lost more than 2 inches in height since high school: YES Hyperparathyroidism: NO Adrenal Insufficiency: NO MEDICATIONS: Prednisone or other steroids: ASTHMA INHALER, AND STEROIDAL DOSE PACS FREQUENTLY Additional Medications: CALCIUM AND VITAMIN D, REFLUX MEDS, STATIN FOR CHOLESTEROL, FEMARA , NSAIDS Additional History: HX OF LT BREAST CANCER, MASTECTOMY , OSTEOARTHRITIS, HX OF LT ROTATOR CUFF TEAR EXAM MEASUREMENTS: Bone mineral densitometry was performed using the [employer] System. Bone mineral density as measured about the Lumbar spine is: ----- L1-L4(G/cm2): 1.263 T Score Values are as follows: ----- L1: -0.2 ----- L2: 0.5 ----- L3: 1.1 ----- L4: 1.0 ----- L1-L4: 0.7 Bone mineral density has: Increased 8.5% since study of: 07.26.2017 Bone mineral density about the R hip (g/cm2): 1.002 Bone mineral density about the L hip (g/cm2): 0.994 T Score values are as follows: -----R Neck: -1.7 -----L Neck: -1.8 -----R Total: 0.0 -----L Total: -0.1 Bone mineral density has: REMAINED THE SAME 0.0% since study of: 07.26.2017 FRAX%s: THERE IS A 23.4% CHANCE FOR A MAJOR OSTEOPOROTIC FX AND A 3.1% FOR HIP.....PROBABILITY FOR FX IN 10 YRS TIME IMPRESSION: Osteopenia (T Score between -2.5 and -1). There is slightly increased risk of fracture and the patient may be considered for treatment. Re-Screen 2-5 years. NOTE: T-SCORE=SD OF THE YOUNG ADULT MEAN.
== END | disposition home or self-care (01) ==
LOC: RADBDWWP 10:32
PROVIDERS: ATTEND Internal Medicine Hematology & Oncology
DX: M85.80 Other specified disorders of bone density and structure, unspecified site (principal); N95.1 Menopausal and female climacteric states; C50.512 Malignant neoplasm of lower-outer quadrant of left female breast; Z79.890 Hormone replacement therapy; Z88.0 Allergy status to penicillin; Z88.2 Allergy status to sulfonamides; Z88.5 Allergy status to narcotic agent
CPT/HCPCS: 77080

== ENCOUNTER → 2020-02-09 | Outpatient (CLI) | payer BC ==
[2020-02-09 11:56] VITALS: BP 125/78; PULSE 57; RESP 16; TEMP 98
--- NOTE | 2020-02-09 12:15 | P.PN ---
Subjective Progress Note Date: 02/09/20 Principal diagnosis: stage IA right breast cancer Surveillance left breast cancer left breast cancer surveillance The patient is a 59-year-old white female who is status post left breast mastectomy approximately 3 years ago. This was for a T1 N0 M0 tumor. She subsequently was treated with Femara and continues to be on Femara. She did not have any chemotherapy. She did not have any radiation therapy. She does not feel any lesions of concern in her right breast at this time. She has no complaint related to the left breast or chest wall at this time. She had a right breast mammogram performed on . This was benign BIRADS 1 and repeat mammogram in 1 year is recommended. She is not complaining of any lumps masses or nodules in her right breast. She is not complaining of any skin changes on her left chest wall. Last year she complained of a rash over the left chest after she takes a shower that has resolved. Patient has had workup over the past year which included cardiac workup which was negative, and patient's symptoms were then diagnosed as GERD. She also had surgery on her left foot. Family history: mother: throat maternal aunt: stage 4 melanoma maternal uncle: pancreatic cancer maternal uncle: cancer pancreatic brother to above patient maternal great aunt: breast cancer Hormonal History: menarche: 11 2, 2 miscarriages menopause: hysterectomy at 30, left one ovary and removed two years later done for endometriosis BCP: 10 years hormones: 20 years, estrogen Past Surgical History: 1. hysterectomy and both ovaries removed 2. right knee 3. appy 4. left mastectomy/ with bilateral implants placed 5. heart cath 6. tonsil 7. colonoscopy and EGD 8. heart cath 9. surgery left foot Past Medical History: 1. fibromyalgia improved, ? diagnosis 2. arthritis 3. migraine 4. GERD 5. left breast cancer 6. patient had COVID but recovered and cleared on 02-05-20. Social History: smoke: none alcohol: none drugs: none - Constitutional Constitutional: Denies chills, Denies fever, occasional hotflashes - EENT Eyes: denies blurred vision, denies pain Ears: deny: decreased hearing, tinnitus Ears, nose, mouth and throat: no headaches at this time - Breasts Breasts: bilateral: as per HPI - Cardiovascular Cardiovascular: Denies chest pain, Denies shortness of breath - Gastrointestinal Comment: colonoscopy about 11/2 year ago negative Gastrointestinal: Reports constipation - Genitourinary (Female) Comment: UTI Genitourinary: Denies dysuria, Denies hematuria - Menstruation Menstruation: Reports post hysterectomy - Musculoskeletal Comment: fibromyalgia, left shoulder arthritis left foot in boot, bunion - Integumentary Integumentary: Reports rash, Denies pruritus - Neurological Neurological: Reports numbness, Denies weakness - Psychiatric Psychiatric: Denies anxiety, Denies depression - Endocrine Endocrine: Reports weight change, Denies fatigue - Hematologic/Lymphatic Comment: baby aspirin - Allergic/Immunologic Allergic/Immunologic: Reports seasonal allergies Objective - Vital Signs Vital signs: Vital Signs Temp 98.0 F 02/09/20 11:53 Pulse 57 L 02/09/20 11:53 Resp 16 02/09/20 11:53 BP 125/78 02/09/20 11:53 Pulse Ox 100 02/09/20 11:53 Intake & Output 02/08/20 02/09/20 02/09/20 18:59 06:59 18:59 Weight 65.317 kg - Exam BMI 22.6 - Constitutional General appearance: Present: average body habitus - EENT Eyes: Present: EOMI ENT: Present: hearing grossly normal - Neck Neck: Present: normal ROM - Respiratory Respiratory: bilateral: CTA - Cardiovascular Rhythm: regular Heart sounds: normal: S1, S2 - Gastrointestinal General gastrointestinal: Present: normal bowel sounds, soft - Integumentary Integumentary: Present: normal turgor - Musculoskeletal Musculoskeletal: Present: gait normal - Psychiatric Psychiatric: Present: A&O x's 3, appropriate affect, intact judgment & insight - Additional findings Additional findings: Breast exam: BRA: 40C insepction: Reconstructed left breast no evidence of recurrent cancer, right breast reduction implant in place Palpation: Right breast: Multi-positional exam implant in place no dominant masses or nodules of concern well-healed scars from prior surgery Right axilla: Shoddy adenopathy non-worrisome Left chest wall: Reconstructed left breast no evidence of recurrent cancer Left axilla: No adenopathy of concern Assessment and Plan Assessment: Impression: 1. Patient status post left breast mastectomy for stage I a left breast cancer, she did not have any radiation or chemo she is presently on Femara and tolerating it well 2. No evidence of recurrence of left breast cancer 3. No evidence of disease in the right breast which would require interventional biopsy Plan: 1. Right breast mammogram in 6 months with follow-up at that time 2. Patient to call sooner if any questions CC: DR. Pineda [id number] [place] [address] encounter 15 minutes, > 50% of time in planning and counselling
== END | disposition home or self-care (01) ==
LOC: WWCWWP 11:39
PROVIDERS: ATTEND Surgery
DX: Z53.9 Procedure and treatment not carried out, unspecified reason (principal)

== ENCOUNTER → 2020-05-31 | Outpatient (CLI) | payer BC ==
--- NOTE | 2020-05-31 15:58 | XR ---
Soft tissue neck HISTORY: Pain, H92.03 3 views of the neck There is no radiopaque foreign body. Prevertebral soft tissues are within normal limits. There is mul tilevel cervical spondylosis, loss of disc height. Epiglottis shows a normal appearance in profile. T here may be underlying dental decay, question abnormal lucency within the maxilla and mandible noted incidentally. IMPRESSION: Degenerative disc disease. Correlate for possible dental disease.
== END | disposition home or self-care (01) ==
LOC: RADXRMAIN 14:19
PROVIDERS: ATTEND Otolaryngology
DX: H92.03 Otalgia, bilateral (principal)
CPT/HCPCS: 70360

== ENCOUNTER → 2020-07-29 | Outpatient (CLI) | payer BC ==
--- NOTE | 2020-07-29 13:32 | MM ---
Reason for exam: additional evaluation requested from prior study. Last mammogram was performed 1 year ago. History: Patient is postmenopausal, has history of breast cancer at age 54, and is nulliparous. Family history of breast cancer in maternal aunt. Malignant MG stereo VAD BX LT of the left breast, June 03, 2015. Implants in both breasts, 2016. Breast lift of the right breast, 2016. Reconstruction of the left breast, 2016. Mastectomy of the left breast, 2015. Cancelled Right Mammotome of the right breast, March 09, 2007. Took estrogen for 17 years beginning at age 31. Taking antineoplastic for 1 year beginning at age 54. Physical Findings: Nurse did not find any significant physical abnormalities on exam. MG 3D Diag Mammo Imp W/Cad RT CC and MLO view(s) were taken of the right breast. Prior study comparison: July 26, 2019, right breast MG 3d diag mammo imp w/cad RT. July 11, 2018, right breast MG 3d diag mammo imp w/cad RT. These results were verbally communicated with the patient and result sheet given to the patient on 07/29/20. ASSESSMENT: Benign, BI-RAD 2 RECOMMENDATION: Follow-up diagnostic mammogram of the right breast in 1 year.
== END | disposition home or self-care (01) ==
LOC: RADMAMWWP 10:02
PROVIDERS: ATTEND Surgery
DX: Z78.0 Asymptomatic menopausal state (principal); Z80.3 Family history of malignant neoplasm of breast
CPT/HCPCS: 77061; 77065

== ENCOUNTER → 2020-08-09 | Outpatient (CLI) | payer BC ==
[2020-08-09 11:58] VITALS: BP 132/71; PULSE 59; RESP 16; TEMP 98.2
--- NOTE | 2020-08-09 12:36 | P.PN ---
Subjective Progress Note Date: 08/09/20 Principal diagnosis: stage Ia left breast cancer stage IA right breast cancer Surveillance left breast cancer left breast cancer surveillance The patient is a 59-year-old white female who is status post left breast mastectomy June 03, 2015. This was for a T1 N0 M0 tumor. She subsequently was treated with Femara and continues to be on Femara. She did not have any chemotherapy. She did not have any radiation therapy. She does not feel any lesions of concern in her right breast at this time. She has no complaint related to the left breast or chest wall at this time. She did have a right breast lift and implant placement and a left breast reconstruction with subpectoral implant. Her plastic surgeon is Dr. Rome Moyer. She follows with him once a year. She also follows with Dr. Mai. She had a right breast mammogram performed on 07-29-20. This was benign BIRADS 2 and repeat mammogram in 1 year is recommended. She is not complaining of any lumps masses or nodules in her right breast. She is not complaining of any skin changes on her left chest wall. Last year she complained of a rash over the left chest after she takes a shower that has resolved. Patient has had workup over the past year which included cardiac workup which was negative, and patient's symptoms were then diagnosed as GERD. She also had surgery on her left foot. Family history: mother: throat maternal aunt: stage 4 melanoma maternal uncle: pancreatic cancer maternal uncle: cancer pancreatic brother to above patient maternal great aunt: breast cancer Hormonal History: menarche: 11 2, 2 miscarriages menopause: hysterectomy at 30, left one ovary and removed two years later done for endometriosis BCP: 10 years hormones: 20 years, estrogen Past Surgical History: 1. hysterectomy and both ovaries removed 2. right knee 3. appy 4. left mastectomy/ with bilateral implants placed 5. heart cath 6. tonsil 7. colonoscopy and EGD 8. heart cath 9. surgery left foot Past Medical History: 1. fibromyalgia improved, ? diagnosis 2. arthritis 3. migraine 4. GERD 5. left breast cancer 6. patient had COVID but recovered and cleared on 02-05-20. Social History: smoke: none alcohol: none drugs: none - Constitutional Constitutional: Denies chills, Denies fever, occasional hotflashes - EENT Eyes: denies blurred vision, denies pain Ears: deny: decreased hearing, tinnitus Ears, nose, mouth and throat: no headaches at this time - Breasts Breasts: bilateral: as per HPI - Cardiovascular Cardiovascular: Denies chest pain, Denies shortness of breath - Gastrointestinal Comment: colonoscopy about 11/2 year ago negative Gastrointestinal: Reports constipation - Genitourinary (Female) Comment: UTI Genitourinary: Denies dysuria, Denies hematuria - Menstruation Menstruation: Reports post hysterectomy - Musculoskeletal Comment: fibromyalgia, left shoulder arthritis left foot in boot, bunion - Integumentary Integumentary: Reports rash, Denies pruritus - Neurological Neurological: Reports numbness, Denies weakness - Psychiatric Psychiatric: Denies anxiety, Denies depression - Endocrine Endocrine: Reports weight change, Denies fatigue - Hematologic/Lymphatic Comment: baby aspirin - Allergic/Immunologic Allergic/Immunologic: Reports seasonal allergies Objective - Vital Signs Vital signs: Vital Signs Temp 98.2 F 08/09/20 11:52 Pulse 59 L 08/09/20 11:52 Resp 16 08/09/20 11:52 BP 132/71 08/09/20 11:52 Pulse Ox 100 08/09/20 11:52 Intake & Output 08/08/20 08/09/20 08/09/20 18:59 06:59 18:59 Weight 68.492 kg - Exam BMI 23.6 - Constitutional General appearance: Present: average body habitus - EENT Eyes: Present: EOMI ENT: Present: hearing grossly normal - Neck Neck: Present: normal ROM - Respiratory Respiratory: bilateral: CTA - Cardiovascular Rhythm: regular Heart sounds: normal: S1, S2 - Gastrointestinal General gastrointestinal: Present: soft - Integumentary Integumentary: Present: normal turgor - Musculoskeletal Musculoskeletal: Present: gait normal - Psychiatric Psychiatric: Present: A&O x's 3, appropriate affect, intact judgment & insight - Additional findings Additional findings: Breast Exam: BRA: 40C Inspection: Asymmetry related to prior breast surgery Palpation: Right breast: Patient has had a reduction and an implant placed multiple positional exam however reveals fibrocystic disease with no evidence of any lesions of concern Right axilla: No adenopathy of concern Left chest wall: Reconstructed breasts no evidence of any recurrent disease Left axilla: No adenopathy of concern Assessment and Plan Assessment: Impression: 1.fibromyalgia improved, ? diagnosis 2. arthritis 3. migraine 4. GERD 5. left breast cancer 6. patient had COVID but recovered and cleared on 02-05-20. 7. Patient status post left mastectomy stage IA disease no evidence of recurrent cancer 8. Patient status post right breast reduction and reconstruction no evidence of any lesions which would require biopsy Plan: 1. Continue Femara with Dr. Mai 2. Continue surveillance here repeat right breast mammogram in 1 year with appointment 3. Patient continues to follow with Dr. Rome Moyer plastic surgery Cc: Dr. Miriam caro 20 minutes
== END ==
LOC: WWCWWP 11:43
PROVIDERS: ATTEND Surgery
DX: C50.912 Malignant neoplasm of unspecified site of left female breast (principal); G43.909 Migraine, unspecified, not intractable, without status migrainosus; M19.90 Unspecified osteoarthritis, unspecified site; K21.9 Gastro-esophageal reflux disease without esophagitis; Z90.12 Acquired absence of left breast and nipple; Z86.16 Personal history of COVID-19; Z88.0 Allergy status to penicillin; Z88.2 Allergy status to sulfonamides; Z88.5 Allergy status to narcotic agent

== ENCOUNTER → 2021-07-30 | Outpatient (CLI) | payer BC ==
--- NOTE | 2021-07-30 15:09 | MM ---
Reason for Exam: Hx of breast cancer, mastectomy. Additional evaluation requested from abnormal screening. Last screening mammogram was performed 12 month(s) ago. Patient History: Menarche at age 13. Patient has no children. Left ovary removed at age 31. Right ovary removed at age 31. Hysterectomy at age 31. Postmenopausal. Breast cancer, age 54. Estrogen for 17 years from age 31 until age 47. 2016, Mastectomy on the Left side. 06/03/2015, Malignant Core Biopsy on the left side. 03/09/2007, Cancelled Right Mammotome on the right side. 2016, Implant on the left side. 2016, Bilateral Implants. Maternal aunt had breast cancer. Film Views: Right CC views were taken. Right MLO views were taken. Right LMID views were taken. Right CCID views were taken. Prior Study Comparison: 07/11/2018 Right Diagnostic Mammogram, [facility]. 07/26/2019 Right Diagnostic Mammogram, [facility]. 07/29/2020 Right Diagnostic Mammogram, [facility]. Tissue Density: Right: There are scattered fibroglandular densities. Findings: Analyzed By CAD. Right breast prosthesis is present. No suspicious spiculated or lobular masses clusters of microcalcifications or architectural distortion are evident. No secondary signs of malignancy are radiographically evident. There is a focal area of increased density within the upper outer right breast along the pectoralis margin may be a axillary lymph node. This was not identified previously. Ultrasound is recommended for additional evaluation. Technique: Method: Targeted. Findings: The upper outer quadrant of the right breast, the axilla of the right breast and the retroareolar of the right breast were scanned. No abnormal lymph nodes visualized at time of scan.Normal-appearing right axillary lymph node is present. No small intramammary nodes are identified. No discrete solid or cystic suspicious areas evident. Overall Assessment: Probably benign, BI-RAD 3 Assessment: MG 3D diag mammo imp w/cad RT - Right: Probably benign, BI-RAD 3. US breast limited RT - Right: Probably benign, BI-RAD 3. Management: Diagnostic Mammogram of the right breast in 6 months. A clinical breast exam by your physician is recommended on an annual basis and results should be correlated with mammographic findings. Results were given to the patient verbally at the time of exam. Electronically signed and approved by: Veto Turcios D.O. Radiologis
== END | disposition home or self-care (01) ==
LOC: RADMAMWWP 11:03
PROVIDERS: ATTEND Internal Medicine Hematology & Oncology
DX: Z85.3 Personal history of malignant neoplasm of breast (principal)
CPT/HCPCS: 77061; 77065

== ENCOUNTER 2021-10-18 13:16 | Observation (INO) | payer BC ==
[2021-10-18] MEDS ORDERED: cefTRIAXone 1,000 MG VIAL (IM USE) IM STA (13:48)
[2021-10-18 13:59] LABS: Basophils # (A) 0.1 k/uL (0-0.2); Basophils % (A) 1 %; Eosinophils # (A) 0.3 k/uL (0-0.7); Eosinophils % (A) 3 %; HCT 42.5 % (34.0-46.0); HGB 13.7 gm/dL (11.4-16.0); Lymphocytes # (A) 2.1 k/uL (1.0-4.8); Lymphocytes % (A) 26 %; MCH 28.8 pg (25.0-35.0); MCHC 32.3 g/dL (31.0-37.0); MCV 89.1 fL (80.0-100.0); Mean Platelet Volume 7.2; Monocytes # (A) 0.5 k/uL (0-1.0); Monocytes % (A) 6 %; Neutrophils # (A) 5.3 k/uL (1.3-7.7); Neutrophils % (A) 63 %; Platelet Count 315 k/uL (150-450); RBC 4.77 m/uL (3.80-5.40); RDW 13.4 % (11.5-15.5); WBC 8.4 k/uL (3.8-10.6)
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
[2021-10-18 14:10] LABS: ALT 24 U/L (4-34); AST 29 U/L (14-36); African American GFR (CKD) 82 (>60 ml/min/1.73 sqM); Albumin 4.5 g/dL (3.5-5.0); Alkaline Phosphatase 95 U/L (38-126); Anion Gap 11 mmol/L; Blood Urea Nitrogen 21 mg/dL (7-17); Carbon Dioxide 22 mmol/L (22-30); Chloride 108 mmol/L (98-107); Glucose 98 mg/dL (74-99); Magnesium 2.2 mg/dL (1.6-2.3); Non-African American GFR(CKD) 71 (>60 ml/min/1.73 sqM); Potassium 4.2 mmol/L (3.5-5.1); Sodium 141 mmol/L (137-145); Total Bilirubin 0.3 mg/dL (0.2-1.3); Total Protein 6.9 g/dL (6.3-8.2)
--- NOTE | 2021-10-18 14:10 | XR ---
EXAMINATION TYPE: XR chest 2V DATE OF EXAM: 10/18/2021 2:00 PM COMPARISON: No relevant priors. TECHNIQUE: XR chest 2V . CLINICAL INDICATION:Female, 61 years old with history of Chest Pain; FINDINGS: Lungs/Pleura: There is no evidence of pleural effusion, focal consolidation, or pneumothorax. Pulmonary vascularity: Unremarkable. Heart/mediastinum: Cardiomediastinal silhouette is unremarkable. Musculoskeletal: No acute osseous pathology. IMPRESSION: No acute cardiopulmonary disease/process.
[2021-10-18 14:20] LABS: INR 0.9 (<1.2); Partial Thromboplastin Time 22.7 sec (22.0-30.0); Prothrombin Time 10.4 sec (9.0-12.0)
[2021-10-18] MEDS ORDERED: ASPIRIN 81 MG PO STA (14:57)
[2021-10-18] MEDS ORDERED: NITROGLYCERIN SL TABS 0.4 MG TAB SUBLINGUAL PRN (14:57)
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
[2021-10-18] MEDS: NITROGLYCERIN OINT 1 INCH/GM PACKET TOPICAL SCH (18:10)
[2021-10-18] MEDS: SYMBICORT 80-4.5 MCG INHALER INHALATION SCH (20:00)
[2021-10-18] MEDS: ATORVASTATIN 20 MG TAB PO SCH (21:25)
[2021-10-18] MEDS: HEPARIN SODIUM,PORCINE/PF 5,000 UNIT/0.5 ML SYRINGE SQ SCH (21:25)
[2021-10-18] MEDS: TOPIRAMATE 25 MG TAB PO SCH (21:25)
[2021-10-18] MEDS: FLECAINIDE 50 MG TAB PO SCH (21:25)
[2021-10-19] MEDS: NITROGLYCERIN OINT 1 INCH/GM PACKET TOPICAL SCH ×5 (01:15→23:49)
[2021-10-19] MEDS: LETROZOLE 2.5 MG TAB PO SCH (07:18)
[2021-10-19] MEDS: CYANOCOBALAMIN 500 MCG TAB PO SCH (07:18)
[2021-10-19] MEDS: DOCUSATE 100 MG CAP PO SCH (07:19)
[2021-10-19] MEDS: TOPIRAMATE 25 MG TAB PO SCH ×2 (07:19→21:25)
[2021-10-19] MEDS: LORATADINE 10 MG TAB PO SCH (07:19)
[2021-10-19] MEDS: CHOLECALCIFEROL 25 MCG (1000 IU) TABLET PO SCH (07:19)
[2021-10-19] MEDS: FLECAINIDE 50 MG TAB PO SCH ×3 (07:19→21:32)
[2021-10-19] MEDS: ASPIRIN 81 MG PO SCH (07:19)
[2021-10-19] MEDS: PANTOPRAZOLE 40 MG TABLET PO SCH (07:19)
[2021-10-19] MEDS: HEPARIN SODIUM,PORCINE/PF 5,000 UNIT/0.5 ML SYRINGE SQ SCH ×2 (07:19→21:26)
[2021-10-19] MEDS: DICYCLOMINE 10 MG CAP PO SCH (07:19)
[2021-10-19 07:25] VITALS: RESP 18
[2021-10-19] MEDS: SYMBICORT 80-4.5 MCG INHALER INHALATION SCH ×2 (08:52→19:47)
[2021-10-19] MEDS ORDERED: ASPIRIN 325 MG TAB PO SCH (09:00)
--- NOTE | 2021-10-19 09:38 | P.PN ---
Subjective Progress Note Date: 10/19/21 Patient was seen and examined. No acute events overnight. Patient reports continued left-sided chest pain aggravated with exertion. She also reports fatigue. General: [non toxic], [no distress], [appears at stated age] Derm: [warm], [dry] Head: [atraumatic], [normocephalic], [symmetric] Eyes: [EOMI], [no lid lag], [anicteric sclera] Mouth: [no lip lesion], [mucus membranes moist] Cardiovascular: [S1S2 reg], [no murmur] Lungs: [CTA bilateral], [no rhonchi, no rales] , [no accessory muscle use] Abdominal: [soft], [ nontender to palpation], [no guarding], [no appreciable organomegaly] Ext: [no gross muscle atrophy], [no edema], [no contractures] Neuro: [no focal neuro deficits] Psych: [Alert], [oriented], [appropriate affect] #Chest pain, rule out acute coronary syndrome #Atrial fibrillation #Asthma #Breast cancer #Dyslipidemia #GERD #Migraine Troponins will be trended and ACS will be ruled out. Echocardiogram is ordered. Continue aspirin and Lipitor. Telemetry monitoring. Cardiology consulted for further management. Restart flecainide. Patient is not on any anticoagulation. CHADVASC score of 1. Stable. Restart Dulera inhaler. Restart Letrozole. Restart Lipitor. Restart Prilosec. Restart Topamax. DVT prophylaxis: [Heparin] Discharge planning based on Cardiology recommendations. Objective - Vital Signs Vital signs: Vital Signs Temp 98 F 10/19/21 07:00 Pulse 57 L 10/19/21 07:00 Resp 18 10/19/21 07:00 BP 129/73 10/19/21 07:00 Pulse Ox 97 10/19/21 07:00 FiO2 Intake & Output 10/18/21 10/19/21 10/19/21 18:59 06:59 18:59 Weight 70.76 kg 70.76 kg Other: Voiding Method Toilet Toilet # Voids 1 - Labs CBC & Chem 7: 10/18/21 13:55 10/18/21 13:55 Labs: Abnormal Lab Results - Last 24 Hours (Table) 10/18/21 Range/Units 13:55 Chloride 108 H (98-107) mmol/L BUN 21 H (7-17) mg/dL
[2021-10-19 11:03] LABS: Chol/HDL Ratio 2.94 Ratio; LDL Cholesterol,Calculated 114.8 mg/dL (0.0-131.0); VLDL Calculation 15.88 mg/dL (5.00-40.00)
[2021-10-19] MEDS ORDERED: ACETAMINOPHEN TAB 325 MG TAB PO PRN (14:54)
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
--- NOTE | 2021-10-19 15:59 | CA ---
Transthoracic Echo Report Name: Jocelyn Ambrosio Age: 61 Gender: F : 1960 Exam Date: 10/19/2021 11:29 Exam Location: [place] Echo Ht (in): 67 Wt (lb): 156 Ordering Physician: Gerson Barrientos MD Attending/Referring Phys: Shaft Tender Graciela Lux RDCS Procedure CPT: Indications: CP Cardiac Hx: Technical Quality: Fair Contrast 1: Total Dose (mL): Contrast 2: Total Dose (mL): MEASUREMENTS (Male / Female) Normal Values 2D ECHO LV Diastolic Diameter PLAX 4.0 cm 4.2 - 5.9 / 3.9 - 5.3 cm LV Systolic Diameter PLAX 2.3 cm IVS Diastolic Thickness 1.2 cm 0.6 - 1.0 / 0.6 - 0.9 cm LVPW Diastolic Thickness 1.3 cm 0.6 - 1.0 / 0.6 - 0.9 cm LV Relative Wall Thickness 0.6 RV Internal Dim ED PLAX 2.0 cm LA Volume 29.9 cm??? 18 - 58 / 22 - 52 cm??? M-MODE Aortic Root Diameter MM 2.6 cm LA Systolic Diameter MM 3.1 cm LA Ao Ratio MM 1.2 AV Cusp Separation MM 1.8 cm DOPPLER MV Area PHT 3.5 cm??? Mitral E Point Velocity 64.7 cm/s Mitral A Point Velocity 82.0 cm/s Mitral E to A Ratio 0.8 MV Deceleration Time 214.6 ms MV E' Velocity 5.0 cm/s Mitral E to MV E' Ratio 13.0 TR Peak Velocity 219.6 cm/s TR Peak Gradient 19.3 mmHg Right Ventricular Systolic Press 23.6 mmHg FINDINGS Left Ventricle Mildly increased left ventricular wall thickness. Normal left ventricular systolic function with no obvious regional wall motion abnormalities. Normal left ventricular diastolic filling pattern. Left ventricular ejection fraction is estimated at 55-60 %. Right Ventricle Normal right ventricular size and function. Right ventricular systolic pressure within normal limits. Right Atrium Normal right atrial size. Left Atrium Normal left atrial size. No evidence for an atrial septal defect. Mitral Valve Structurally normal mitral valve. No mitral stenosis, or prolapse. Mild mitral regurgitation. Aortic Valve No aortic valve stenosis or regurgitation. Tricuspid Valve Structurally normal tricuspid valve. Mild tricuspid regurgitation. Pulmonic Valve Trace pulmonic regurgitation. Pericardium No pericardial effusion. Aorta Normal size aortic root and proximal ascending aorta. CONCLUSIONS 1. Normal size and systolic function 2. Mild mitral and tricuspid regurgitation Previewed by: Dr. Francois Souza MD (Electronically Signed) Final Date: 19 October 2021 15:58
[2021-10-19] MEDS: ATORVASTATIN 20 MG TAB PO SCH (21:25)
[2021-10-20] MEDS: NITROGLYCERIN OINT 1 INCH/GM PACKET TOPICAL SCH ×2 (05:06→11:10)
--- NOTE | 2021-10-20 07:11 | P.PN ---
Subjective Progress Note Date: 10/20/21 Principal diagnosis: Chest pain This is a 61-year-old female patient with paroxysmal atrial fibrillation was admitted to the hospital with chest discomfort was felt to be atypical for angina. The patient was seen this morning. She still have mild chest discomfort. Hemodynamically she is stable. The patient scheduled to undergo a stress test later on today. We'll follow-up with the patient. Meanwhile will continue the current medical Objective - Vital Signs Vital signs: Vital Signs Temp 97.5 F L 10/20/21 02:00 Pulse 60 10/20/21 02:00 Resp 18 10/19/21 20:28 BP 113/70 10/20/21 02:00 Pulse Ox 98 10/20/21 02:00 FiO2 Intake & Output 10/19/21 10/20/21 10/20/21 18:59 06:59 18:59 Intake Total 200 Balance 200 Intake: Oral 200 Other: Voiding Method Toilet # Voids 2 2 - Constitutional General appearance: Present: no acute distress - Respiratory Respiratory: bilateral: CTA - Cardiovascular Rhythm: regular Heart sounds: normal: S1, S2 Abnormal Heart Sounds: Present: systolic murmur - Labs CBC & Chem 7: 10/18/21 13:55 10/18/21 13:55 Labs: Abnormal Lab Results - Last 24 Hours (Table) 10/19/21 Range/Units 06:16 HDL Cholesterol 67.30 H (40.00-60.00) mg/dL Assessment and Plan Assessment: Assessment #1 atypical chest discomfort #2 paroxysmal atrial fibrillation Plan #1 acute coronary event was ruled out #2 follow-up with the patient after the stress test
[2021-10-20] MEDS: SYMBICORT 80-4.5 MCG INHALER INHALATION SCH (07:53)
[2021-10-20] MEDS: ASPIRIN 81 MG PO SCH (10:48)
[2021-10-20] MEDS: DICYCLOMINE 10 MG CAP PO SCH (10:49)
[2021-10-20] MEDS: CYANOCOBALAMIN 500 MCG TAB PO SCH (10:49)
[2021-10-20] MEDS: LORATADINE 10 MG TAB PO SCH (10:49)
[2021-10-20] MEDS: PANTOPRAZOLE 40 MG TABLET PO SCH (10:49)
[2021-10-20] MEDS: FLECAINIDE 50 MG TAB PO SCH (10:49)
[2021-10-20] MEDS: LETROZOLE 2.5 MG TAB PO SCH (10:49)
[2021-10-20] MEDS: DOCUSATE 100 MG CAP PO SCH (10:49)
[2021-10-20] MEDS: TOPIRAMATE 25 MG TAB PO SCH (10:49)
[2021-10-20] MEDS: CHOLECALCIFEROL 25 MCG (1000 IU) TABLET PO SCH (10:49)
[2021-10-20] MEDS: HEPARIN SODIUM,PORCINE/PF 5,000 UNIT/0.5 ML SYRINGE SQ SCH (10:50)
--- NOTE | 2021-10-20 11:25 | CA ---
Stress Echo Report Jocelyn Ambrosio Age: 61 Gender: F : 1960 Exam Date: 10/20/2021 10:18 Exam Location: [place] Stress Ht (in): 67 Wt (lb): 156 Ordering Physician: Cristiane Person Referring Physician: Derrick, Estimation Manager: Yani Barriga RDCS Technologist Procedure CPT: Indication: chest pain, LO, fatigue ICD-9 Codes: Rhythm: Patient History: Asthma, Fm hx of heart disease Cardiac Medications: Medications in past 24 hours: Contrast: Lumason Stress Results Protocol: Lazaro Total dose(mL): 5 Exercise Duration (min:sec): [address] Depression (mm): Angina Score: Mcfarland Score: METS: 6.0 Resting HR: 87 Resting BP: 151 / 81 Peak HR: 123 Peak BP: 191 / 61 Max Predicted HR: 158 78 % Max Predicted HR Target HR: 134 Double Product: [id number] Stress Summary: BP Response: Reason for Termination: Stopped due to extreme sob. Cardiac Symptoms: back pain/sob ECG Analysis Resting ECG: Stress ECG: Arrhythmia: Echo Analysis Resting Echo: Peak Echo Analysis: MEASUREMENTS (Male/Female) Normal Values CONCLUSIONS Poor exercise tolerance. The patient exercised on the treadmill for only 4 minutes and she achieved 3.8 METS Nondiagnostic electrocardiogram response to exercise in the light off abnormal baseline EKG Poor acoustic window due to the patient. The patient had prior breast implant. The echo images were poor inspiratory of using Definity The patient developed shortness of breath and response to exercise. Different modality of stress test or heart catheterization is advised Dr. Landon Deras MD (Electronically Signed) Final Date: 20 October 2021 11:24
--- NOTE | 2021-10-20 12:59 | P.PN ---
Progress Note - Text Progress Note Date: 10/20/21 The patient was seen this morning [place] she was scheduled to have a stress test from the weekend. She underwent stress echocardiogram which came in to be inconclusive because she could not achieve 85% of maximal predicted heart rate. And the images were technically poor because of poor acoustic windows. 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 She was advised to come back to the emergency department she continues to be symptomatic.
[2021-10-20 14:18] VITALS: BP 110/56; PULSE 64; TEMP 97.8
--- NOTE | 2021-10-20 18:23 | P.DS ---
Providers Date of admission: 10/18/21 15:10 Expected date of discharge: 10/20/21 Attending physician: Jaxon Meza MD Consults: 10/18/21 14:57 Consult Physician Urgent Consulting Provider: [facility] Consult Reason/Comments: Chest pain Do you want consulting provider notified?: Yes Primary care physician: Jayla Hamlin, DO Hospital Course: Discharge Diagnosis: Chest pain, acute coronary event ruled out. Patient to follow up outpatient with her rate manager on 10/24/21 as scheduled at 9:45 AM as it is highly r ecommended patient undergo Lexiscan stress test or cardiac cath as stress echocardiogram was inconclusive secondary to poor exercise tolerance. Hyperlipidemia Asthma/COPD Breast cancer, continue to follow up outpatient for follow-up appointments to ensure you remain in remission. Paroxysmal atrial fibrillation, not on anticoagulation [id number] score 1. Hospital Course: Patient is a very pleasant 61-year-old female with a past medical history of hyperlipidemia, COPD, breast cancer migraines, breast cancer and atrial fibrillation not on anticoagulation. She presented to the emergency department with a chief complaint of chest pain/pressure in which patient reports felt to left anterior chest radiating into her left shoulder beginning a couple days ago and seems to be worse with exertion. She underwent full evaluation in the emergency department. EKG completed showing normal sinus rhythm at [address] depression in leads II and otherwise no significant ST or T-wave abnormalities showing no signs of acute ischemia. Chest x-ray negative for acute cardiopulmonary process. CBC, coags, and CMP unremarkable. D-dimer negative at 0.26 and troponin negative at 0.012. TSH 1.590. Patient admitted under our services with consultation to cardiology. Troponins were trended overnight and all negative at less than 0.0123 draws. Patient's previous reports of chest pain have completely resolved. Patient underwent Echocardiogram revealing preserved EF of 55-60% with mild mitral and tricuspid regurgitation. Stress echocardiogram was completed and inconclusive secondary to poor exercise tolerance. Cardiology discussed this with patient and recommending patient undergo a Lexiscan stress test or cardiac cath. Being chest pain has subsided and patient is currently free from any complaints and medically stable, it is recommended patient follow up outpatient with her rate manager Dr. Hamlin to discuss Lexiscan stress test versus cardiac cath. Patient would like to follow-up with her rate manager and an appointment was scheduled for 10/24/21 at 9:45 AM. As stated above patient has been free from any chest pain or complaints and is medically stable. Patient has been instructed that she is going to be discharged home and to follow up outpatient with her PCP and rate manager as discussed and if at any time she develops a return of chest pain and it is of utmost importance for her to return to the emergency department immediately for evaluation. Physical examination: Patient seen and examined at bedside. Vital signs reviewed and stable. General: Nontoxic, no distress and appears stated age. Derm: Skin warm and dry, normal coloration for ethnicity. Head: Atraumatic, normocephalic and symmetric. Eyes: EOMs intact, no lid lag, and anicteric sclera Mouth: no lip lesions, mucus membranes moist Cardiovascular: regular rate and rhythm with normal S1S2, systolic murmur, positive posterior tibial pulses bilaterally, and cap refill < 2 seconds. Lungs: Respirations even, regular, and unlabored on room air. Lungs CTA bilaterally, no rhonchi, no rales, no wheezing, and no accessory muscle usage. Abdominal: soft, nontender to palpation, no guarding, no appreciable organomegaly Ext: ROM intact. No gross muscle atrophy, no edema, no contractures Neuro: Speech clear, face symmetrical and CN II-XII grossly intact with no noted focal neuro deficits Psych: Alert and oriented to person, place, time, and situation. Appropriate and pleasant affect. A total of 34 minutes of time were spent preparing this complex discharge summary. Pt was discharged on 10/20/21 at 1:54 PM. I reviewed the documentation as provided by the RON above, who is the original author of this note. I agree with the documented assessment and plan, with the following changes: none Patient Condition at Discharge: Stable Plan - Discharge Summary New Discharge Prescriptions: Continue Flecainide Acetate 50 mg PO BID Calcium Carbonate/Vitamin D3 [Calcium 600-Vit D3 400 Tablet] 2 tab PO DAILY Mometasone/Formoterol [Dulera 100 Mcg-5 Mcg Inhaler] 1 puff INHALATION RT-BID Topiramate 50 mg PO HS Atorvastatin [Lipitor] 20 mg PO HS Topiramate [Topamax] 25 mg PO DAILY Letrozole [Femara] 2.5 mg PO DAILY Cyanocobalamin (Vitamin B-12) [Vitamin B-12] 1,000 mcg PO DAILY Docusate [Colace] 200 mg PO DAILY Cetirizine HCl [Zyrtec] 10 mg PO DAILY Cholecalciferol [Vitamin D3 (25 Mcg = 1000 Iu)] 50 mcg PO DAILY Magnesium Oxide [Magnesium] 500 mg PO DAILY Omeprazole 40 mg PO DAILY Linaclotide [Linzess] 290 mcg PO DAILY Aspirin EC [Ecotrin Low Dose] 81 mg PO DAILY Dicyclomine HCl 10 mg PO DAILY Discharge Medication List Atorvastatin [Lipitor] 20 mg PO HS 06/21/15 [History] Calcium Carbonate/Vitamin D3 [Calcium 600-Vit D3 400 Tablet] 2 tab PO DAILY 06/21/15 [History] Flecainide Acetate 50 mg PO BID 06/21/15 [History] Mometasone/Formoterol [Dulera 100 Mcg-5 Mcg Inhaler] 1 puff INHALATION RT-BID 06/21/15 [History] Topiramate 50 mg PO HS 06/21/15 [History] Topiramate [Topamax] 25 mg PO DAILY 06/21/15 [History] Letrozole [Femara] 2.5 mg PO DAILY 10/21/16 [History] Aspirin EC [Ecotrin Low Dose] 81 mg PO DAILY 10/18/21 [History] Cetirizine HCl [Zyrtec] 10 mg PO DAILY 10/18/21 [History] Cholecalciferol [Vitamin D3 (25 Mcg = 1000 Iu)] 50 mcg PO DAILY 10/18/21 [History] Cyanocobalamin (Vitamin B-12) [Vitamin B-12] 1,000 mcg PO DAILY 10/18/21 [History] Dicyclomine HCl 10 mg PO DAILY 10/18/21 [History] Docusate [Colace] 200 mg PO DAILY 10/18/21 [History] Linaclotide [Linzess] 290 mcg PO DAILY 10/18/21 [History] Magnesium Oxide [Magnesium] 500 mg PO DAILY 10/18/21 [History] Omeprazole 40 mg PO DAILY 10/18/21 [History] Follow up Appointment(s)/Referral(s): Jayla Hamlin DO [Primary Care Provider] - 10/24/21 9:45 am Patient Instructions/Handouts: Chest Pain (DC) Activity/Diet/Wound Care/Special Instructions: Activity: As tolerated. Take breaks as needed. Diet: Heart healthy and carb consistent diet. Avoid salts, or foods with hidden salts such as canned or boxed foods and frozen dinners. Extra salt makes your heart work harder and traps the fluid in your body for longer. Special Instructions: Take all of your medications as directed and remember to keep all of your doctor's appointments and follow-up as needed. I understand that your chest pain has resolved, however if this chest pain returns, it is of upmost importance for you to return to the emergency department immediately for evaluation. Thank you for allowing us to participate in your care, it was truly a pleasure having you for our patient!!! Discharge Disposition: HOME SELF-CARE
== END 2021-10-20 14:45 | disposition home or self-care (01) ==
LOC: EC 13:16 → 6NMEDSUR 15:10
PROVIDERS: ADMIT Internal Medicine; ATTEND Internal Medicine
DX: R07.89 Other chest pain (principal); E78.5 Hyperlipidemia, unspecified; J44.9 Chronic obstructive pulmonary disease, unspecified; K21.9 Gastro-esophageal reflux disease without esophagitis; I48.0 Paroxysmal atrial fibrillation; I08.1 Rheumatic disorders of both mitral and tricuspid valves; I37.1 Nonrheumatic pulmonary valve insufficiency; Z79.899 Other long term (current) drug therapy; Z79.51 Long term (current) use of inhaled steroids; Z88.0 Allergy status to penicillin; Z88.2 Allergy status to sulfonamides; Z85.3 Personal history of malignant neoplasm of breast; Z90.12 Acquired absence of left breast and nipple; Z90.710 Acquired absence of both cervix and uterus; Z83.3 Family history of diabetes mellitus; Z82.49 Family history of ischemic heart disease and other diseases of the circulatory system; Z82.3 Family history of stroke; Z20.822 Contact with and (suspected) exposure to COVID-19; Z79.811 Long term (current) use of aromatase inhibitors; Z79.82 Long term (current) use of aspirin
CPT/HCPCS: 96372 ×3; 99285; 36415; 94640 ×3; 93005; 93306; 93351; 85379; 83880; 80061; 80053; 84443; 83735; 84484; 85025; 85610; 85730; 87635; 71046; G0378 ×3; J1644 ×3

== ENCOUNTER → 2021-10-24 | Outpatient (CLI) | payer BC ==
[2021-10-24 18:39] LABS: HCT 42.3 % (37.2-46.3); HGB 13.6 g/dL (12.0-15.0); MCHC 32.2 g/dL (32.0-37.0); MCV 90.2 fL (80.0-97.0); Mean Platelet Volume 10.5 fL (9.5-12.2); NRBC Per 100 WBC 0 /100 WBCS (0.0-0.0); Platelet Count 333 X 10*3/uL (140-440); RBC 4.69 X 10*6/uL (4.10-5.20); RDW 13.7 % (11.5-14.5); WBC 7.38 X 10*3/uL (4.50-10.00)
[2021-10-24 19:55] LABS: Chol/HDL Ratio 2.83 Ratio; LDL Cholesterol,Calculated 118.7 mg/dL (0.0-131.0); VLDL Calculation 18.34 mg/dL (5.00-40.00)
[2021-10-24 21:56] LABS: African American GFR (CKD) 69.9 (60.0-200.0); Calcium 9.5 mg/dL (8.7-10.3); Chloride 104 mmol/L (96-109); Glucose 98 mg/dL (70-110); Non-African American GFR(CKD) 60.3 (60.0-200.0); Potassium 4.8 mmol/L (3.5-5.5); Sodium 141 mmol/L (135-145); Uric Acid 4.5 mg/dL (2.9-7.7)
[2021-10-24 22:07] LABS: ALT 37 U/L (8-44); AST 29 U/L (13-35); Alkaline Phosphatase 117 U/L (41-126); Creatine Kinase 80 U/L (26-186)
== END | disposition home or self-care (01) ==
LOC: LABWHC1 12:23
PROVIDERS: ATTEND Internal Medicine Cardiovascular Disease
DX: R00.2 Palpitations (principal)
CPT/HCPCS: 36415; 80051; 80061; 82247; 82310; 82550; 82565; 82947; 83721; 84075; 84436; 84443; 84450; 84460; 84480; 84550; 85027

== ENCOUNTER → 2021-11-11 | Outpatient (CLI) | payer BC ==
--- NOTE | 2021-11-11 10:40 | BD ---
EXAMINATION TYPE: Axial Bone Density DATE OF EXAM: 11/11/2021 COMPARISON: 10.11.2019 STUDY UNAVAILABLE, TRENDED TO 07.26.2017 STUDY CLINICAL HISTORY: 61 years year old Female. ICD-10 CODE: C50.512 BR CANCER Height: 65 Weight: 163 FRAX RISK QUESTIONS: Glucocorticoids (More than 3mos): YES (Ex: prednisone, prednisolone, methylprednisolone, dexamethasone, and hydrocortisone). History of Fracture in Adulthood: YES Secondary Osteoporosis: YES 3. Menopause before 45: YES, 34YRS OLD RISK FACTORS HISTORY OF: FX LT HAND AN ADULT, RT FOOT, LT ROTATOR CUFF TEAR History of Wrist Fracture: LT WRIST AN ADULT Active: YES Postmenopausal woman: AT 34 YRS OLD Take estrogen and/or progesterone medications: YES, 15 + YRS, NONE NOW Lost more than 2 inches in height since high school: YES Hyperparathyroidism: NO Adrenal Insufficiency: NO MEDICATIONS: Prednisone or other steroids: YES, ASTHMA, AND DOSE PACS OF PREDNISONE FREQUENTLY, Additional Medications: VIT D, CALCIUM, REFLUX MEDS, CHOLESTEROL MEDS, FEMARA, NSAIDS, Additional History: LT BR CA, MASTECTOMY, OSTEOARTHRITIS, LT ROTATOR CUFF TEAR, REFLUX, CHOLESTEROL, CHRONIC ARTH RITIS AND PAIN ASSOCIATED WITH IT EXAM MEASUREMENTS: Bone mineral densitometry was performed using the [employer] System. Bone mineral density as measured about the Lumbar spine is: ----- L1-L4(G/cm2): 1.165 T Score Values are as follows: ----- L1: -0.7 ----- L2: -0.6 ----- L3: 0.4 ----- L4: 0.0 ----- L1-L4: -0.1 Bone mineral density has: Decreased -0.9% since study of: 07.26.2017 Bone mineral density about the R hip (g/cm2): 0.942 Bone mineral density about the L hip (g/cm2): 1.009 T Score values are as follows: -----R Neck: -1.6 -----L Neck: -1.8 -----R Total: -0.3 -----L Total: 0.0 Bone mineral density has: Decreased -0.8% since study of: 07.26.2017 FRAX%s: The graph provided illustrates a 24.7% chance for a major osteoporotic fx and a 3.5% chance f or the hips probability for fx in 10 years time. IMPRESSION: Osteopenia (T Score between -2.5 and -1) in left neck. There is slightly increased risk of fracture and the patient may be considered for treatment. Re-Screen 2-5 years. NOTE: T-SCORE=SD OF THE YOUNG ADULT MEAN.
== END | disposition home or self-care (01) ==
LOC: RADBDWWP 08:40
PROVIDERS: ATTEND Internal Medicine Hematology & Oncology
DX: Z03.89 Encounter for observation for other suspected diseases and conditions ruled out (principal); C50.512 Malignant neoplasm of lower-outer quadrant of left female breast
CPT/HCPCS: 77080

== ENCOUNTER → 2024-02-01 | Outpatient (CLI) | payer BC ==
--- NOTE | 2024-02-01 17:38 | BD ---
EXAMINATION TYPE: Axial Bone Density DATE OF EXAM: 02/01/2024 CLINICAL HISTORY: 63 years old Female. ICD-10 CODE: M81.0 Osteopenia , Additional History: Height: 65 Weight: 157 FRAX RISK QUESTIONS: Alcohol (3 or more units per day): no Family History (Parent hip fracture): no Glucocorticoids (More than 3mos): no (Ex: prednisone, prednisolone, methylprednisolone, dexamethasone, and hydrocortisone). History of Fracture in Adulthood: yes Secondary Osteoporosis: 1. Type 1 Diabetes: no 2. Hyperthyroidism: no 3. Menopause before 45: yes 4. Malnutrition: no 5. Chronic liver disease: no Rheumatoid Arthritis: no Current Tobacco Use: no RISK FACTORS HISTORY OF: Surgery to Spine/Hip(right/left)/Wrist (right/left): no EXAM MEASUREMENTS: Bone mineral densitometry was performed using the [employer] System. Bone mineral density as measured about the Lumbar spine is: ----- L1-L4(G/cm2): 1.080 T Score Values are as follows: ----- L1: -1.7 ----- L2: -0.8 ----- L3: -0.2 ----- L4: -0.9 ----- L1-L4: -0.8 Z Score Values are as follows: ----- L1: -0.4 ----- L2: 0.6 ----- L3: 1.1 ----- L4: 0.5 ----- L1-L4: 0.5 Bone mineral density has: decreased -7.3 % since study of: 11.11.2021 Bone mineral density about the R hip (g/cm2): 0.928 Bone mineral density about the L hip (g/cm2): 0.959 T Score values are as follows: -----R Neck: -1.9 -----L Neck: -2.0 -----R Total: -0.6 -----L Total: -0.4 Z Score values are as follows: -----R Neck: -0.6 -----L Neck: -0.7 -----R Total: 0.4 -----L Total: 0.6 Bone mineral density has: decreased -4.7 % since study of: 9.6.2021 FRAX%s: The graph provided illustrates a 17.3% chance for a major osteoporotic fx and a 2.6% chance f or the hips probability for fx in 10 years time. IMPRESSION: Osteopenia (T Score between -2.5 and -1). There is slightly increased risk of fracture and the patient may be considered for treatment. Re-Screen 2-5 years. NOTE: T-SCORE=SD OF THE YOUNG ADULT MEAN. [facility], , 02/01/2024 5:36 PM
== END | disposition home or self-care (01) ==
LOC: RADBDWWP 15:13
PROVIDERS: ATTEND Internal Medicine Hematology & Oncology
DX: M81.0 Age-related osteoporosis without current pathological fracture (principal); M85.89 Other specified disorders of bone density and structure, multiple sites
CPT/HCPCS: 77080

== ENCOUNTER → 2024-02-15 | Outpatient (CLI) | payer BC ==
--- NOTE | 2024-02-18 22:56 | CT ---
EXAMINATION TYPE: CT brain wo con DATE OF EXAM: 02/15/2024 5:25 PM COMPARISON: None. CLINICAL INDICATION: Female, 63 years old with history of Z85.3 HX OF BREAST CX G43.009 MIGRAINE J32. 9 SINUS, Headaches and sinus pressure no injury. TECHNIQUE: CT of the brain is performed utilizing 3 mm thick sections through the posterior fossa and 3 mm thick sections through the remaining calvarium. Study is performed within 24 hours of arrival to the hospital. Contrast used: mL of , (none if empty) CT DLP: 1123 mGycm, Automated exposure control for dose reduction was used. FINDINGS: No abnormal hyperdensity is present to suggest an acute intracranial hemorrhage. No mass lesion is evident. No acute infarcts are evident. Ventricles and sulci are appropriate for the patient age. Paranasal sinuses and mastoid air cells within the [id number] are clear. IMPRESSION: 1. No acute intracranial process. Follow up MRI can be performed as clinically indicated. [facility], , 02/18/2024 10:54 PM
== END | disposition home or self-care (01) ==
LOC: RADCTMAIN 16:24
PROVIDERS: ATTEND Psychiatry & Neurology Neurology
DX: G43.009 Migraine without aura, not intractable, without status migrainosus (principal); J32.9 Chronic sinusitis, unspecified; Z85.3 Personal history of malignant neoplasm of breast
CPT/HCPCS: 70450

== ENCOUNTER 2024-05-20 16:42 | Observation (INO) | payer BC ==
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
[2024-05-20 18:08] LABS: Basophils % (A) 0 %; Eosinophils # (A) 0.4 k/uL (0-0.7); Eosinophils % (A) 2 %; HCT 48.5 % (34.0-46.0); HGB 15.3 gm/dL (11.4-16.0); Lymphocytes # (A) 0.7 k/uL (1.0-4.8); Lymphocytes % (A) 4 %; MCH 28.6 pg (25.0-35.0); MCHC 31.6 g/dL (31.0-37.0); MCV 90.5 fL (80.0-100.0); Monocytes # (A) 0.5 k/uL (0-1.0); Monocytes % (A) 3 %; Neutrophils # (A) 17.1 k/uL (1.3-7.7); Neutrophils % (A) 91 %; Platelet Count 340 k/uL (150-450); RBC 5.35 m/uL (3.80-5.40); RDW 13.4 % (11.5-15.5); WBC 18.7 k/uL (3.8-10.6)
[2024-05-20 18:16] LABS: ALT 32 U/L (4-34); AST 30 U/L (14-36); African American GFR (CKD) 55 (>60 ml/min/1.73 sqM); Albumin 4.9 g/dL (3.5-5.0); Alkaline Phosphatase 111 U/L (38-126); Anion Gap 10 mmol/L; Blood Urea Nitrogen 18 mg/dL (7-17); Calcium 9.8 mg/dL (8.4-10.2); Carbon Dioxide 22 mmol/L (22-30); Chloride 107 mmol/L (98-107); Glucose 138 mg/dL (74-99); Non-African American GFR(CKD) 48 (>60 ml/min/1.73 sqM); Potassium 4.6 mmol/L (3.5-5.1); Sodium 139 mmol/L (137-145); Total Bilirubin 0.5 mg/dL (0.2-1.3); Total Protein 7.6 g/dL (6.3-8.2)
[2024-05-20 18:22] LABS: INR 0.9 (<1.2); Partial Thromboplastin Time 20.4 sec (22.0-30.0); Prothrombin Time 10.5 sec (10.0-12.5)
--- NOTE | 2024-05-20 19:11 | XR ---
EXAMINATION TYPE: XR chest 2V DATE OF EXAM: 05/20/2024 6:54 PM COMPARISON: Chest radiographs from 10/18/2021 CLINICAL INDICATION: Female, 63 years old with history of syncope; TECHNIQUE: XR chest 2V Frontal and lateral views of the chest. FINDINGS: Lungs/Pleura: There is no evidence of pleural effusion, focal consolidation, or pneumothorax. Pulmonary vascularity: Unremarkable. Heart/mediastinum: Cardiomediastinal silhouette is unremarkable. Musculoskeletal: No acute osseous pathology. IMPRESSION: No acute cardiopulmonary disease/process. [facility], , 05/20/2024 7:09 PM
[2024-05-20] MEDS: SODIUM CHLORIDE 0.9% 1,000 ML IV SCH ×2 (19:40→20:51)
[2024-05-20] MEDS: ONDANSETRON 4 MG/2 ML VIAL IVP STA (19:45)
[2024-05-20 20:01] VITALS: TEMP 98.7
[2024-05-20] MEDS ORDERED: ONDANSETRON 4 MG/2 ML VIAL IVP PRN (20:05)
[2024-05-20] MEDS ORDERED: NALOXONE 0.4 MG/ML 1 ML VIAL IV PRN (20:05)
[2024-05-20 20:23] LABS: Magnesium 2.3 mg/dL (1.6-2.3)
[2024-05-20 20:41] LABS: Influenza A Not Detected (Not Detectd); Influenza B Not Detected (Not Detectd); RSV Not Detected (Not Detectd)
[2024-05-20] MEDS: ATORVASTATIN 20 MG TAB PO SCH (20:50)
[2024-05-20] MEDS: FLECAINIDE 50 MG TAB PO SCH (20:50)
[2024-05-20] MEDS: TOPIRAMATE 25 MG TAB PO SCH (20:50)
[2024-05-20] MEDS: PANTOPRAZOLE 40 MG/10 ML VIAL IV SCH (20:54)
[2024-05-21 04:09] LABS: Appearance,Urine Clear (Clear); Bilirubin,Urine Negative (Negative); Blood,Urine Negative (Negative); Color,Urine Yellow; Glucose,Urine (UA) Negative (Negative); Ketones,Urine Negative (Negative); Leukocyte Esterase,Urine Trace (Negative); Mucus,Urine Rare /hpf; Nitrite,Urine Negative (Negative); PH, Urine 5.5 (5.0-8.0); Protein,Urine Negative (Negative); RBC,Urine 1 /hpf (0-5); Specific Gravity,Urine 1.029 (1.001-1.035); Squamous Epithelial Cell,Urine 1 /hpf (0-4); Urobilinogen,Urine <2.0 mg/dL (<2.0); WBC,Urine 2 /hpf (0-5)
[2024-05-21] MEDS: SYMBICORT 160-4.5 MCG INHALER INHALATION SCH (08:13)
[2024-05-21] MEDS: LOSARTAN 50 MG TAB PO SCH (08:41)
[2024-05-21] MEDS: TOPIRAMATE 25 MG TAB PO SCH (08:41)
[2024-05-21] MEDS: ESCITALOPRAM 10 MG TAB PO SCH (08:41)
[2024-05-21] MEDS: ACETAMINOPHEN TAB 325 MG TAB PO PRN (08:46)
[2024-05-21] MEDS: NON FORMULARY DRUG (Linaclotide [Linzess] 290 MCG Capsule) PO SCH (08:49)
[2024-05-21 09:16] LABS: Basophils # (A) 0.05 X 10*3/uL (0.00-0.10); Basophils % (A) 0.3 %; Eosinophils # (A) 0.02 X 10*3/uL (0.04-0.35); Eosinophils % (A) 0.1 %; HCT 40.6 % (37.2-46.3); HGB 12.9 g/dL (12.0-15.0); Lymphocytes # (A) 0.45 X 10*3/uL (0.90-5.00); Lymphocytes % (A) 2.9 %; MCH 29.4 pg (27.0-32.0); MCHC 31.8 g/dL (32.0-37.0); MCV 92.5 FL (80.0-97.0); Mean Platelet Volume 10.4 FL (9.5-12.2); Monocytes # (A) 0.32 X 10*3/uL (0.20-1.00); Monocytes % (A) 2.1 %; NRBC Per 100 WBC 0 X 10*3/uL (0.00-0.01); Neutrophils # (A) 14.44 X 10*3/uL (1.80-7.70); Neutrophils % (A) 94.2 %; Platelet Count 289 X 10*3/uL (140-440); RBC 4.39 X 10*6/uL (4.10-5.20); RDW 13.7 % (11.5-14.5); WBC 15.34 X 10*3/uL (4.50-10.00)
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
--- NOTE | 2024-05-21 09:19 | P.DS ---
Providers Date of admission: 05/20/24 20:05 Attending physician: Emerson Bedolla Primary care physician: Mor Pineda MD Hospital Course: 63-year-old pleasant female came with syncope/loss of consciousness patient was lightheaded. Patient had a colonoscopy yesterday. Patient was having a lot of loose bowel movements and diarrhea probably because of the colon prep. Patient is hypotensive does take losartan at home patient has elevated serum creatinine of 1.28 baseline is within normal limits. Patient does have leukocytosis as well but there is no evidence of infection at this time. Patient does have history of atrial fibrillation with patient sinus rhythm not on any anticoagulation at home. Patient lightheadedness resolved after 2 L of fluid resuscitation. Patient will be continued on 125 cc of normal saline with probably can be discharged later today at around 2 PM after she receives the next hydration and patient was asked to hold off on losartan and check the blood pressure at home and can start taking it once her blood pressure starts going up or wait until she sees her primary care physician on Wednesday. EKG shows sinus bradycardia on admission but heart rate is presently good. REVIEW OF SYSTEMS: All other systems are negative except those mentioned in the HPI PHYSICAL EXAMINATION: GENERAL: The patient is alert and oriented x3, not in any acute distress. Well developed, well nourished. HEENT: Pupils are round and equally reacting to light. EOMI. No scleral icterus. No conjunctival pallor. Normocephalic, atraumatic. No pharyngeal erythema. No thyromegaly. CARDIOVASCULAR: S1 and S2 present. No murmurs, rubs, or gallops. PULMONARY: Chest is clear to auscultation, no wheezing or crackles. ABDOMEN: Soft, nontender, nondistended, normoactive bowel sounds. No palpable organomegaly. MUSCULOSKELETAL: No joint swelling or deformity. EXTREMITIES: No cyanosis, clubbing, or pedal edema. NEUROLOGICAL: Gross neurological examination did not reveal any focal deficits. SKIN: No rashes. Assessment and plan -Syncope secondary to dehydration from diarrhea improved with IV fluid hydration -Acute renal failure secondary to prerenal azotemia/vasomotor nephropathy secondary to dehydration as mentioned above -Leukocytosis reactive without any evidence of infection -History of paroxysmal atrial fibrillation presently sinus rhythm heart presently. Well-controlled at this time -Hyperlipidemia -History of complicated migraine -History of breast cancer in remission Patient will be discharged today Plan - Discharge Summary New Discharge Prescriptions: Continue Topiramate 50 mg PO HS Atorvastatin [Lipitor] 20 mg PO HS Topiramate [Topamax] 25 mg PO DAILY Escitalopram [Lexapro] 5 mg PO DAILY Omeprazole 40 mg PO DAILY Linaclotide [Linzess] 290 mcg PO DAILY Losartan [Cozaar] 50 mg PO DAILY Flecainide Acetate [Tambocor] 100 mg PO BID Budesonide/Formoterol Fumarate [Symbicort 160-4.5 Mcg Inhaler] 2 puff INHALATION RT-BID Discharge Medication List Atorvastatin [Lipitor] 20 mg PO HS 06/21/15 [History] Topiramate 50 mg PO HS 06/21/15 [History] Topiramate [Topamax] 25 mg PO DAILY 06/21/15 [History] Linaclotide [Linzess] 290 mcg PO DAILY 10/18/21 [History] Omeprazole 40 mg PO DAILY 10/18/21 [History] Budesonide/Formoterol Fumarate [Symbicort 160-4.5 Mcg Inhaler] 2 puff INHALATION RT-BID 05/20/24 [History] Escitalopram [Lexapro] 5 mg PO DAILY 05/20/24 [History] Flecainide Acetate [Tambocor] 100 mg PO BID 05/20/24 [History] Losartan [Cozaar] 50 mg PO DAILY 05/20/24 [History] Follow up Appointment(s)/Referral(s): Mor Pineda MD [Primary Care Provider] - 3 Days Discharge Disposition: HOME SELF-CARE
[2024-05-21 09:20] LABS: ALT 25 U/L (8-44); AST 24 U/L (13-35); Albumin/Globulin Ratio 2.22 Ratio (1.60-3.17); Alkaline Phosphatase 98 U/L (41-126); BUN/Creat Ratio 18.45 Ratio (12.00-20.00); Blood Urea Nitrogen 20.3 mg/dL (9.0-27.0); Calcium 8.6 mg/dL (8.7-10.3); Carbon Dioxide 18.4 mmol/L (21.6-31.8); Chloride 113 mmol/L (96-109); Globulin 1.8 g/dL (1.6-3.3); Glucose 117 mg/dL (70-110); Potassium 4.2 mmol/L (3.5-5.5); Sodium 145 mmol/L (135-145); Total Bilirubin 0.2 mg/dL (0.3-1.2); Total Protein 5.8 g/dL (6.2-8.2)
[2024-05-21 14:06] VITALS: BP 115/55; PULSE 78; RESP 18
[2024-05-22] MEDS ORDERED: ESCITALOPRAM 5 MG TAB PO SCH (09:00)
== END 2024-05-21 14:06 | disposition home or self-care (01) ==
LOC: EC 16:42 → 6NMEDSUR 20:05
PROVIDERS: ADMIT Hospitalist; ATTEND Hospitalist
DX: R55 Syncope and collapse (principal); N17.0 Acute kidney failure with tubular necrosis; G43.109 Migraine with aura, not intractable, without status migrainosus; E86.0 Dehydration; D72.829 Elevated white blood cell count, unspecified; E78.5 Hyperlipidemia, unspecified; I48.0 Paroxysmal atrial fibrillation; J45.909 Unspecified asthma, uncomplicated; Z11.52 Encounter for screening for COVID-19; Z85.3 Personal history of malignant neoplasm of breast; Z90.12 Acquired absence of left breast and nipple; Z79.51 Long term (current) use of inhaled steroids; Z79.811 Long term (current) use of aromatase inhibitors; Z79.82 Long term (current) use of aspirin; Z79.899 Other long term (current) drug therapy; Z88.0 Allergy status to penicillin; Z88.2 Allergy status to sulfonamides; Z88.5 Allergy status to narcotic agent
CPT/HCPCS: 96376; 96361; 96374; 96375; 99285; 36415; 94640; 93005; 80053 ×2; 83735; 84100; 84484 ×2; 85025 ×2; 85610; 85730; 81001; 87636; 71046; G0378 ×2; J2405; J2470 ×2